=== PATIENT | female | born 1940 | race Caucasian/White ===

== ENCOUNTER 2023-05-11 18:55 | Inpatient (IN) | payer BC, SELFPAY ==
[2023-05-11] VITALS (22 sets, daily range): BP systolic 91–121; BP diastolic 60–77; PULSE 56–73; RESP 13–23; TEMP 36.4; O2SAT 97–100
--- NOTE | ~2023-05-11 | US_ITS ---
EXAMINATION: US venous doppler UE RT DATE: 05/12/2023 19:21 INDICATION: Increased swelling at the right upper limb. Elevated d-dimer. TECHNIQUE: Grayscale images without and with compression and Doppler images of the right upper extrem ity veins were obtained. COMPARISON: None. FINDINGS: The right internal jugular vein, subclavian vein, axillary vein, brachial vein, basilic vein are bonilla nt. The right cephalic vein was unable to be visualized. IMPRESSION: 1. Patent right upper extremity veins. No evidence of venous thrombosis. Reviewed, dictated and finalized at location A. DEVELOPMENT DIRECTOR
--- NOTE | ~2023-05-11 | US_ITS ---
EXAMINATION: US venous doppler LE DATE: 05/12/2023 19:22 INDICATION: Right lower limb swelling TECHNIQUE: Grayscale ultrasound images without and with compression and Doppler ultrasound images of the right lower extremity veins were obtained. COMPARISON: None. FINDINGS: The visualized portions of right common femoral vein, profunda (deep) femoral vein, femoral vein, pop liteal vein, peroneal trunk, posterior tibial veins, peroneal veins and greater saphenous vein outflo w are patent. IMPRESSION: 1. No deep venous thrombosis in the right lower limb. Reviewed, dictated and finalized at location A. 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
--- NOTE | ~2023-05-11 | CT_ITS ---
EXAMINATION: CT abdomen pelvis w con DATE: 05/11/2023 20:48 INDICATION: Right groin swelling TECHNIQUE: Computed tomography (CT) of the abdomen and pelvis was performed with 100 mL Omnipaque-350 intravenous contrast. Automated exposure control and iterative reconstruction technique were employe d. The dose-length product was 581.94 mGy-cm. COMPARISON: None FINDINGS: Small bilateral posterior layering pleural effusions with dependent compressive atelectasis in bilate ral lower lobes. Calcified nodule in the atelectatic right lower lobe and calcified paraesophageal ly mph nodes consistent with old granulomatous disease. Borderline heart size with biatrial enlargement. No pericardial effusion. Small sliding-type hiatal hernia with postoperative changes of likely prior Teresita fundoplication. Cholecystectomy clips the gallbladder fossa. Liver, spleen, pancreas, bilater al adrenal glands and left kidney are normal. 13 x 8 mm stone at the right renal pelvis. Subtle hazin ess to the fat abutting the renal pelvis but no hydronephrosis. There are few phleboliths along the r ight gonadal vein and in the pelvis. No evident ureteral stones. There are-4 mm stone in the right tr igonal region of the bladder. The uterus is not identified and has likely been surgically resected. B owels including the appendix are normal. Small bilateral fat-containing inguinal hernias. Extensive b calin wall edema extending from the lower chest into the bilateral thighs. No free intraperitoneal gas or fluid. No pathologically enlarged abdominal or pelvic lymphadenopathy. There is calcified atherosc lerosis of the aorta and many of the other arteries. Moderate lumbar and lower thoracic spondylosis. Subarticular sclerosis at the posterior medial right femoral head consistent with osteonecrosis. IMPRESSION: 1. Subtle haziness to the fat about the right renal pelvis likely related to inflammation secondary t o a 13 x 8 mm stone at the right renal pelvis but which is without hydronephrosis. Correlate with uri nalysis to exclude associated ascending urinary tract infection. 2. Small to moderate-sized bilateral pleural effusions. 3. Borderline heart size with biatrial enlargement. 4. Small sliding-type hiatal hernia with change of prior Teresita fundoplication. 5. Small bilateral fat-containing inguinal hernias. Reviewed, dictated and finalized at location A. IMPRESSION: 1. Subtle haziness to the fat about the right renal pelvis likely related to in flammation secondary to a 13 x 8 mm stone at the right renal pelvis but which i s without hydronephrosis. Correlate with urinalysis to exclude associated ascen ding urinary tract infection. 2. Small to moderate-sized bilateral pleural effusions. 3. Borderline heart size with biatrial enlargement. 4. Small sliding-type hiatal hernia with change of prior Teresita fundoplication. 5. Small bilateral fat-containing inguinal hernias.
--- NOTE | ~2023-05-11 | XR_ITS ---
EXAMINATION: XR abdomen/kub 1V INDICATION: Right kidney stone TECHNIQUE: Supine view of the abdomen is obtained. COMPARISON: CT from yesterday FINDINGS: There is a 1.5 cm stone in the right renal pelvis. No additional urolithiasis is identified . Contrast from yesterday's CT examination is seen in the urinary bladder. A calcification of the rig ht midabdomen is demonstrated to be in the right gonadal vein on the comparison CT. The bowel gas pat tern is normal. Cholecystectomy clips are noted. There is a partially imaged endovascular stent in th e proximal left lower extremity. IMPRESSION: 1. 1.5 cm stone in the right renal pelvis. Reviewed, dictated and finalized at location F. ND OPERATIONS SUPERINTENDENT
--- NOTE | ~2023-05-11 | XR_ITS ---
EXAMINATION: XR pelvis 1-2V DATE: 05/11/2023 20:32 INDICATION: Pelvic pain TECHNIQUE: An anteroposterior view of the pelvis was obtained. COMPARISON: None. FINDINGS: Bone alignment is normal. No fracture or suspected avascular necrosis. Mild bilateral hip and sacroil iac osteoarthritis. At least mild lumbar spondylosis. Assess for stent at the left groin. IMPRESSION: 1. Mild degenerative skeletal changes in the pelvis and lower lumbar spine. No acute osseous abnormal ity. Reviewed, dictated and finalized at location A. IMPRESSION: 1. Mild degenerative skeletal changes in the pelvis and lower lumbar spine. No acute osseous abnormality.
--- NOTE | ~2023-05-11 | XR_ITS ---
EXAMINATION: XR femur RT min 2V, XR tibia fibula RT 2V DATE: 05/11/2023 20:31 INDICATION: Right lower limb pain TECHNIQUE: 1. Overlapping proximal and distal, AP and lateral views of the right femur were obtained. 2. AP and lateral views of the right tibia and fibula were obtained. COMPARISON: None FINDINGS: Diffuse osteopenia. Alignment is normal. No fracture. Mild osteoarthritis at the right hip and right ankle. Additional moderate tricompartmental osteoarthritis at the right knee, severity of which coul d be underestimated on nonweightbearing imaging. No definitive right knee or ankle joint joint effusi ons. Vascular stenting in the distal thigh right and proximal left thigh. Soft tissue swelling throug hout the right lower limb most prominent about the ankle. Several dystrophic calcific lesions at the site of a region of focal atrophy of the subcutaneous fat at the medial aspect of the distal right ca lf which suggests sequela of chronic insult which could be due to prior trauma, surgery or infection. IMPRESSION 1. Diffuse osteopenia and polyarticular osteoarthritis mild at the right hip and ankle and of at leas t moderate severity at the right knee. No evident acute osseous abnormality. Reviewed, dictated and finalized at location A. IMPRESSION 1. Diffuse osteopenia and polyarticular osteoarthritis mild at the right hip an d ankle and of at least moderate severity at the right knee. No evident acute o sseous abnormality. IMPRESSION 1. Diffuse osteopenia and polyarticular osteoarthritis mild at the right hip an d ankle and of at least moderate severity at the right knee. No evident acute o sseous abnormality.
--- NOTE | ~2023-05-11 | XR_ITS ---
EXAMINATION: XR elbow RT min 3V DATE: 05/11/2023 19:47 INDICATION: Right elbow pain and swelling TECHNIQUE: Anteroposterior, oblique and lateral views of the right elbow were obtained. COMPARISON: None. FINDINGS: Diffuse osteopenia. Alignment is normal. No fracture or joint effusion. Mild osteoarthritis at the ri ght elbow. Small enthesophyte at the lateral epicondyle. No cortical erosions or periosteal reaction. Prominent soft tissue swelling posterior to the elbow and proximal forearm. IMPRESSION: 1. No right elbow joint effusion or acute osseous abnormality. Reviewed, dictated and finalized at location A.
--- NOTE | 2023-05-11 19:17 | ED.GENADULT ---
HPI - General Adult General Chief complaint: Unspecified Stated complaint: swelling to arm, leg, and groin Time Seen by Provider: 05/11/23 19:17 History of Present Illness HPI narrative: Patient is an 82 year old female with history of afib, prior stroke with right sided deficits, here with multiple joint pains. Patient states that she began having pain in her right elbow, right groin, right leg which she believes all began yesterday. She denies fall. She believes she is on a blood thinner but all of her medications are provided by her facility so she is unsure. She thinks that she has been at her facility for the last 6 months. She denies fever or chills. She denies chest pain or shortness of breath. Facility paperwork notes a history of TIA, CVA, hyperlipidemia, seizures, GERD, depression. Medication list includes Eliquis 2.5 mg b.i.d. She is DNR per their paperwork. Related Data Allergies Allergy/AdvReac Type Severity Reaction Status Date / Time No Known Allergies Allergy Verified 05/11/23 19:04 Review of Systems Review of Systems: ROS unobtainable: Yes unobtainable due to mental status Exam Narrative: GENERAL: Well-appearing, well-nourished, and in no acute distress. HEAD: Normocephalic, atraumatic. EYES: PERRLA and EOMI. ENT: Nares clear. Mucous membranes moist. NECK: Supple. CHEST: Clear to auscultation. No respiratory distress. HEART: Regular rate and rhythm. Normal peripheral pulses. ABDOMEN: Soft, nontender, nondistended. EXTREMITIES: Tenderness to the right elbow, normal ROM, mild edema, no erythema. Strong radial pulse with normal sensation distal to injury. Diffuse right leg swelling and tenderness extending from the groin to the ankle. No erythema or warmth. SKIN: Warm, dry, no rash. NEURO: No focal deficits. Alert and oriented x2. PSYCH: Normal mood and affect. Course Course Emergency Course: Chart review performed. Patient here with swelling in multiple joints. Triage vitals normal. No prior visits in our system. Lab work and imaging reviewed, CBC grossly within normal limits, her chart does note history of chronic anemia. Hemoglobin today is 9.8, suspect this is likely at her baseline. ESR is 34, D-dimer elevated at 1.24. She is already on Eliquis, will continue this and plan for ultrasound when available. BNP elevated at 1460. Xrays negative aside from osteoarthritis noted in right hip and ankle. CT shows subtle haziness at right renal pelvis, 13x8 mm stone at right renal pelvis without hydronephrosis. UA pending. Spoke with Dr. Moura regarding stone and UTI. Advises NPO for now, will see her in the morning. Expectant management for now and okay to anticoagulate at this point. Treat UTI for now. Spoke with Dr. Perdomo, accepts for admission. No additional anticoagulation needed at this time. Routine ultrasound ordered for RLE to look for DVT. NPO order placed. Facility paperwork states patient is DNR. Vital Signs Vital signs: Vital Signs Temperature 97.6 F 05/11/23 18:56 Pulse Rate 67 05/11/23 18:56 Respiratory Rate 17 05/11/23 18:56 Blood Pressure 121/73 05/11/23 18:56 Pulse Oximetry 100 05/11/23 18:56 Oxygen Delivery Room Air 05/11/23 18:56 Temperature 97.6 F 05/11/23 19:08 Pulse Rate 56 L 05/11/23 22:31 Respiratory Rate 16 05/11/23 22:31 Blood Pressure 99/65 L 05/11/23 22:31 Pulse Oximetry 99 05/11/23 22:31 Oxygen Delivery Room Air 05/11/23 18:56 Medical Decision Making Vital Signs Vital Signs: Vital Signs Temperature 97.6 F 05/11/23 18:56 Pulse Rate 67 05/11/23 18:56 Respiratory Rate 17 05/11/23 18:56 Blood Pressure 121/73 05/11/23 18:56 Pulse Oximetry 100 05/11/23 18:56 Oxygen Delivery Room Air 05/11/23 18:56 Temperature 97.6 F 05/11/23 19:08 Pulse Rate 56 L 05/11/23 22:31 Respiratory Rate 16 05/11/23 22:31 Blood Pressure 99/65 L 05/11/23 22:31 Pulse Oximetry 99 05/11/23 22:31 Ox
[2023-05-11 19:59] LABS: Basophils Percent Auto 0.2 % (0.2-1.2); Eosinophils Absolute Auto 0.2 K/mm3 (0-0.3); Eosinophils Percent Auto 3.7 % (0-4.4); Hematocrit 31.4 % (37.0-47.0); Hemoglobin 9.8 g/dL (12.0-15.0); Immature Granulocyte Absolute 0.01 K/mm3 (0.00-0.031); Immature Granulocyte Percent A 0.2 % (0-0.5); Lymphocytes Absolute Auto 1.53 K/mm3 (0.9-3.2); Lymphocytes Percent Auto 35.4 % (18.3-44.2); Mean Corpuscular HGB Conc 31.2 g/dl (32-36); Mean Corpuscular Hemoglobin 27.1 pg (26-34); Mean Platelet Volume 10.4 fl (7.4-10.4); Monocytes Absolute Auto 0.3 K/mm3 (0.1-0.6); Monocytes Percent Auto 7.2 % (2.6-8.5); Neutrophils Absolute Auto 2.3 K/mm3 (1.3-6.7); Neutrophils Percent Auto 53.3 % (45.5-73.1); Platelet Count Result 185 k/mm3 (150-375); Red Blood Count 3.61 M/mm3 (4.2-5.4); Red Cell Distribution Width 20.5 % (11.5-14.5); White Blood Count 4.3 K/mm3 (4.5-10.0)
[2023-05-11 20:14] LABS: Alanine Aminotransferase 21 U/L (6-35); Albumin Level 2.4 g/dL (3.5-5.1); Alkaline Phosphatase 79 U/L (38-126); Anion Gap -1 mmol/L (8-16); Aspartate Amino Transferase 31 U/L (14-36); Bilirubin,Total 0.4 mg/dL (0.2-1.3); Blood Urea Nitrogen 17 mg/dL (7-17); Calcium 7.9 mg/dL (8.4-10.2); Carbon Dioxide 33 mmol/L (22-30); Chloride 106 mmol/L (98-107); Creatine Kinase 33 U/L (30-135); Estimated CRCL calculation 39 ml/min; Estimated Glomerular Filt Rate 60; Glucose 114 mg/dL (65-110); Potassium 3.4 mmol/L (3.4-5.0); Sodium 138 mmol/L (137-145)
[2023-05-11 20:19] LABS: D Dimer 1.24 ug/mL (<0.48)
[2023-05-11 20:21] LABS: CRP 0.5 mg/dL (<1.0)
[2023-05-11 20:23] LABS: NT Pro B Type Natriuretic Pept 1460 pg/mL (19.9-100)
[2023-05-11 20:35] LABS: Erythrocyte Sedimentation Rate 34 mm/hr (0-20)
[2023-05-11 23:48] LABS: Bacteria Urine 4+ /hpf; Need Manual Microscopic Reviewed; RBC Urine >100 /hpf (0-2); Squamous Epithelial Cell Urine Occasional /hpf (Few); WBC Urine >100 /hpf
[2023-05-11 23:49] LABS: Appearance Urine Cloudy (Clear); Bilirubin Urine Negative (Negative); Blood Urine 3+ (Negative); Color Urine Brown (Yellow); Glucose Urine UA Negative (Negative); Ketones Urine Negative (Negative); Leukocyte Esterase Ur 2+ LEU/UL (Negative); Nitrate Urine Negative (Negative); Protein Urine 3+ mg/dL (Negative); Specific Grav Ur 1.031 (1.001-1.035); Urobilinogen Urine 0.2 mg/dL (<2.0); pH Urine 5.5 (5.0-9.0)
[2023-05-11 23:50] LABS: Add Urine Microscopic? YES
[2023-05-12] VITALS (12 sets, daily range): BP systolic 102–136; BP diastolic 54–75; PULSE 60–81; RESP 12–20; TEMP 36.3–37; O2SAT 97–100; BMI 22.6
--- NOTE | 2023-05-12 00:35 | PM.IMHP ---
H&P: HPI History of Present Illness Date/Time: 05/12/23 00:35 Chief Complaint: body pain Narrative: This is an 82 yo female with past medical history significant for seizure disorder, stroke, atrial fibrillation, rate controlled and anticoagulated, patient resides at [facility]. Patient brought for evaluation to the emergency room after complaining of very use pains however upon interviewing with the patient she was not able to give me really much history or meaningful. A states that has belly pain has had diarrhea and poor appetite. Preliminary workup was significant for urinalysis with numerous WBCs present. CT of abdomen and pelvis was reported as: EXAMINATION: CT abdomen pelvis w con DATE: 05/11/2023 20:48 INDICATION: Right groin swelling TECHNIQUE: Computed tomography (CT) of the abdomen and pelvis was performed with 100 mL Omnipaque-350 intravenous contrast. Automated exposure control and iterative reconstruction technique were employed. The dose-length product was 581.94 mGy-cm. COMPARISON: None FINDINGS: Small bilateral posterior layering pleural effusions with dependent compressive atelectasis in bilateral lower lobes. Calcified nodule in the atelectatic right lower lobe and calcified paraesophageal lymph nodes consistent with old granulomatous disease. Borderline heart size with biatrial enlargement. No pericardial effusion. Small sliding-type hiatal hernia with postoperative changes of likely prior Teresita fundoplication. Cholecystectomy clips the gallbladder fossa. Liver, spleen, pancreas, bilateral adrenal glands and left kidney are normal. 13 x 8 mm stone at the right renal pelvis. Subtle haziness to the fat abutting the renal pelvis but no hydronephrosis. There are few phleboliths along the right gonadal vein and in the pelvis. No evident ureteral stones. There are-4 mm stone in the right trigonal region of the bladder. The uterus is not identified and has likely been surgically resected. Bowels including the appendix are normal. Small bilateral fat-containing inguinal hernias. Extensive body wall edema extending from the lower chest into the bilateral thighs. No free intraperitoneal gas or fluid. No pathologically enlarged abdominal or pelvic lymphadenopathy. There is calcified atherosclerosis of the aorta and many of the other arteries. Moderate lumbar and lower thoracic spondylosis. Subarticular sclerosis at the posterior medial right femoral head consistent with osteonecrosis. IMPRESSION: 1. Subtle haziness to the fat about the right renal pelvis likely related to inflammation secondary to a 13 x 8 mm stone at the right renal pelvis but which is without hydronephrosis. Correlate with urinalysis to exclude associated ascending urinary tract infection. 2. Small to moderate-sized bilateral pleural effusions. 3. Borderline heart size with biatrial enlargement. 4. Small sliding-type hiatal hernia with change of prior Teresita fundoplication. 5. Small bilateral fat-containing inguinal hernias. Review of Systems Review of Systems: vague complains, although initially said various pains and poor appetite. Constitutional: Constitutional: Denies chills, Denies fever(s) and Reports poor appetite Eyes: Eyes: Denies change in vision ENT: Denies dysphagia and Denies odynophagia Cardiovascular: Cardiovascular: Denies chest pain Respiratory: Respiratory: Denies cough and Denies dyspnea Gastrointestinal: Gastrointestinal: Reports abdominal pain, Denies dyspepsia, Denies heartburn, Reports diarrhea, Denies nausea and Denies vomiting Genitourinary: Genitourinary: Denies dysuria and Denies flank pain Musculoskeletal: Musculoskeletal: Reports myalgias and Denies limited range of motion Integumentary/Breasts: Skin/Breast: Denies rash Neurologic: Denies focal weakness and Denies Sensory deficit (Neuro) Psychiatric: Psychiatric: Reports no additional psychiatric complaints and Reports as per HPI Endocrine: Endocrine: Yasir
[2023-05-12 00:51] LABS: Lactic Acid Reflex 0.9 mmol/L (0.7-2.0)
--- NOTE | 2023-05-12 01:19 | ADMGEN ---
This patient, Lisa Francis, was admitted to Medical Room 348-01. Patient/family oriented to hospital policies and general routines including ID bracelet, bed and alarms, visiting hours, pain management, procedures, bathroom and other care routines, personal items, smoking policy, room service/diet, and visiting hours. Information on how to activate the Rapid Response Team has been discussed. Patient/Family are encouraged to report perceived risks to care and to ask questions if they do not understand what they are told or what they should do.
--- NOTE | 2023-05-12 01:19 | PC.NURSE ---
Daylight Savings Time For Daylight Savings Time Ending in the Fall - Clocks are moved back. For Daylight Savings Time Beginning in the Spring - Clocks are moved ahead. For [facility], the time of change occurs at 0200 hrs. Time is taken from the sql server dba. This entry on the patient's chart recognizes the change in time reflected during documentation. Example: 2 entries for vital signs may be charted for 0200 hrs.
--- NOTE | 2023-05-12 10:49 | PM.IMPN ---
Progress Note: A&P Assessment and Plan (1) Acute urinary tract infection: Code(s): N39.0 - Urinary tract infection, site not specified Status: Acute Assessment and Plan: 05/11/23:(copied from chart) Admit to regular medical floor Started on Rocephin Await cultures Supportive care 05/12/23: UA showing 3+ protein, 3+ blood, 2+ leukocytes, 4+ bacteria, many urine white blood cells/red blood cells. Blood in urine cultures pending Patient was started on Rocephin and we will continue with Rocephin pending culture results. Urology following patient, no intervention needed at this time as the CT scan does not show any hydronephrosis (2) Calculus of right kidney: Code(s): N20.0 - Calculus of kidney Status: Acute Assessment and Plan: 05/11/23:(copied from chart) NPO past midnight Urology consult 05/12/23: Urology consulted and following, CT scan showing no hydronephrosis, no interventions needed at this time. Patient will need to follow up with Urology on an outpatient basis. Can resume diet (3) Right leg swelling: Code(s): M79.89 - Other specified soft tissue disorders Status: Acute Assessment and Plan: 05/11/23:(copied from chart) Ultrasound in a.m. Patient is on Eliquis 05/12/23: Bilateral venous lower extremity Doppler ultrasound ordered, will get right upper extremity venous Doppler as well Patient currently on Eliquis (4) D-dimer, elevated: Code(s): R79.89 - Other specified abnormal findings of blood chemistry Status: Acute Assessment and Plan: 05/11/23:(copied from chart) Patient on Eliquis 05/12/23: D-dimer 1.24 Patient currently on Eliquis Awaiting bilateral lower extremity venous Doppler ultrasound and will get a right upper extremity Doppler as well Time Spent With Patient Time with patient: Greater than 35 minutes Subjective Date/time seen: 05/12/23 10:49 Interval history: Interval history 05/12/23: This is an 82 year old female with a significant past medical history of TIA, CVA, hyperlipidemia, seizures, GERD, and depression who presented to the hospital on 05/11/23 with swelling to her right arm, right groin, and right leg that she noticed in last 24 hours. Work up in the hospital includes a right elbow x-ray which did not show any effusion or abnormality, femur and tib/fib x-ray which shown diffuse oseopenia and polyarticular osteoarthritis mild at the right hip and ankle and moderate severity at the right knee, no evidence of acute osseous abnormality,X-ray of the pelvis revealed mild degenerative skeletal changes in the pelvis and lower lumbar, no acute osseous abnormality. She also had a CT scan of her abdomen and pelvis which shown subtle haziness to the fat about the right renal pelvis likely related to inflammation secondary to a 13x 8mm stone at the right renal pelvis without hydronephrosis, small to moderate bilateral pleural effusions, small sliding type hiatal hernia with change of prior schuyler fundoplication, and small bilateral fat- containing inguinal hernias. UA was perfomed whic shown 3+ blood, 2+ leukocytes, 4+ bacteria, and many urine RBC's and WBC's. Urine and blood cultures were sent. Patient was given a dose of Rocephin in the ER and Urology was consulted about the stone. On examination today patient is alert oriented x4, lying in the bed. She has had noticeable swelling to the right elbow. Patient denies any falls. She does report that she has had a CVA in the past with right-sided weakness. She is on Eliquis. She reports her pain is well controlled with morphine 2 mg every 4 hours. VSS, she is afebrile, and currently on room air. Labs shown WBC 3.9, RBC 3.86, Hgb 10.4, Hct 34.0, Na+ 139, K+ 3.5, BUN 16, creatinine 0.80, blood glucose 82-114, liver enzymes normal, Ca+ 7.9, albumin 2.6. Urology seen patient today and reports that the patient is asymptomatic from the stone and there is no hydronephrosis on CT scan,
--- NOTE | 2023-05-12 10:54 | WPDURCON ---
Assessment and Plan Assessment and plan (1) Acute urinary tract infection: Code(s): N39.0 - Urinary tract infection, site not specified Status: Acute (2) Calculus of right kidney: Code(s): N20.0 - Calculus of kidney Status: Acute Assessment and Plan: She is asymptomatic from the stone, no hydro. Will obtain KUB. -likely will need outpt ESWL when acute issues resolve and UTI treated -await cultures -tailor abx accordingly Urology Consult Note HPI Date Seen: 05/12/23 Requesting Physician: Ekta Perdomo MD Primary Care Provider: [employer] MAKER PHYSICIAN Consult Narrative Narrative: Lisa Francis is a 82 year old female who presented to ED with c/o right sided swelling. She has hx of stroke, she is on eliquis. urology consulted for CT scan finding of renal pelvis stone without hydro. She denies fevers/chills. Denies flank pain. She endorses dysuria. No N/V. Denies prior hx of stone disease. UA was consistent with UTI, Cr normal, WBC 13. Today she denies any urologic symptoms. Review of Systems Constitutional: Constitutional: Denies body ache(s) and Denies chills Eyes: Eyes: Reports no additional eye complaints ENT: Reports system reviewed and no additional complaints, except as documented Cardiovascular: Cardiovascular: Denies chest pain Respiratory: Respiratory: Denies dyspnea Gastrointestinal: Gastrointestinal: Reports as per HPI and Reports no additional gastrointestinal complaints Genitourinary: Genitourinary: Reports no additional female genitourinary complaints Musculoskeletal: Musculoskeletal: Reports no additional musculoskeletal complaints Integumentary/Breasts: Skin/Breast: Reports system reviewed and no additional complaints, except as docu Neurologic: Reports system reviewed and no additional complaints, except as documented Psychiatric: Psychiatric: Reports no additional psychiatric complaints PMFSH Social History Social History Smoking status: Never smoker Alcohol intake: former Substance use: never Substance use type: does not use Lack of Transportation: No Lack of Food: Never True Current Housing: I Have Housing Concerned About Future Housing: No Difficulty Paying Gas/Electric Bills: No Difficulty Paying for Meds: No Currently Unemployed: No Education: Decline to Answer Difficulty w/ Childcare or Family Care: No Spiritual care concerns: No Meds Home Medications and Allergies Home Medications Medication Instructions Recorded Confirmed Type apixaban 2.5 mg tablet (Eliquis) 2.5 mg PO BID 05/12/23 05/12/23 History atorvastatin 80 mg tablet 80 mg PO DAILY 05/12/23 05/12/23 History ergocalciferol (vitamin D2) 1,250 1,250 mcg PO WEEKLY 05/12/23 05/12/23 History mcg (50,000 unit) capsule (Vitamin D2) escitalopram oxalate 20 mg tablet 20 mg PO DAILY 05/12/23 05/12/23 History famotidine 10 mg tablet 10 mg PO DAILY 05/12/23 05/12/23 History furosemide 40 mg tablet 40 mg PO DAILY 05/12/23 05/12/23 History levetiracetam 750 mg tablet 750 mg PO BID 05/12/23 05/12/23 History mirtazapine 15 mg tablet 15 mg PO DAILY 05/12/23 05/12/23 History ondansetron 4 mg disintegrating 4 mg PO Q8H PRN Nausea 05/12/23 05/12/23 History tablet polyethylene glycol 3350 17 17 g PO BID PRN Constipation 05/12/23 05/12/23 History gram/dose oral powder (Miralax) potassium chloride 20 mEq 20 meq PO DAILY 05/12/23 05/12/23 History tablet,extended release(part/cryst) (Klor-Con M) Allergies Allergy/AdvReac Type Severity Reaction Status Date / Time No Known Allergies Allergy Verified 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
[2023-05-12 11:05] LABS: Basophils Percent Auto 0.5 % (0.2-1.2); Eosinophils Absolute Auto 0.1 K/mm3 (0-0.3); Eosinophils Percent Auto 3.6 % (0-4.4); Hemoglobin 10.4 g/dL (12.0-15.0); Immature Granulocyte Absolute 0.01 K/mm3 (0.00-0.031); Immature Granulocyte Percent A 0.3 % (0-0.5); Lymphocytes Absolute Auto 1.34 K/mm3 (0.9-3.2); Lymphocytes Percent Auto 34.4 % (18.3-44.2); Mean Corpuscular HGB Conc 30.6 g/dl (32-36); Mean Corpuscular Hemoglobin 26.9 pg (26-34); Mean Corpuscular Volume 88.1 fl (80-100); Mean Platelet Volume 10.5 fl (7.4-10.4); Monocytes Absolute Auto 0.3 K/mm3 (0.1-0.6); Monocytes Percent Auto 7.2 % (2.6-8.5); Neutrophils Absolute Auto 2.1 K/mm3 (1.3-6.7); Platelet Count Result 176 k/mm3 (150-375); Red Blood Count 3.86 M/mm3 (4.2-5.4); Red Cell Distribution Width 20.6 % (11.5-14.5); White Blood Count 3.9 K/mm3 (4.5-10.0)
[2023-05-12 11:15] LABS: Alanine Aminotransferase 20 U/L (6-35); Albumin Level 2.6 g/dL (3.5-5.1); Alkaline Phosphatase 83 U/L (38-126); Anion Gap 2 mmol/L (8-16); Aspartate Amino Transferase 32 U/L (14-36); Bilirubin,Total 0.5 mg/dL (0.2-1.3); Blood Urea Nitrogen 16 mg/dL (7-17); Calcium 7.9 mg/dL (8.4-10.2); Carbon Dioxide 30 mmol/L (22-30); Chloride 107 mmol/L (98-107); Estimated CRCL calculation 46 ml/min; Estimated Glomerular Filt Rate > 60; Glucose 82 mg/dL (65-110); Potassium 3.5 mmol/L (3.4-5.0); Sodium 139 mmol/L (137-145)
[2023-05-12] MEDS: SODIUM CHLORIDE 0.9% IV 1,000 ML 100 ML IV CONT (11:47)
[2023-05-12] MEDS: levETIRAcetam 250 MG TABLET 750 MG PO (16:27)
[2023-05-12] MEDS: MIRTAZAPINE 15 MG TABLET PO (20:00)
[2023-05-13] VITALS (9 sets, daily range): BP systolic 94–114; BP diastolic 46–65; PULSE 54–82; RESP 14–18; TEMP 36.4–36.8; O2SAT 96–100
[2023-05-13 06:07] LABS: Basophils Percent Auto 0.4 % (0.2-1.2); Eosinophils Absolute Auto 0.1 K/mm3 (0-0.3); Eosinophils Percent Auto 2.6 % (0-4.4); Hematocrit 28.1 % (37.0-47.0); Hemoglobin 8.6 g/dL (12.0-15.0); Immature Granulocyte Absolute 0.02 K/mm3 (0.00-0.031); Immature Granulocyte Percent A 0.4 % (0-0.5); Lymphocytes Absolute Auto 1.37 K/mm3 (0.9-3.2); Lymphocytes Percent Auto 27.6 % (18.3-44.2); Mean Corpuscular HGB Conc 30.6 g/dl (32-36); Mean Corpuscular Hemoglobin 26.9 pg (26-34); Mean Corpuscular Volume 87.8 fl (80-100); Mean Platelet Volume 10.9 fl (7.4-10.4); Monocytes Absolute Auto 0.4 K/mm3 (0.1-0.6); Monocytes Percent Auto 8.1 % (2.6-8.5); Neutrophils Percent Auto 60.9 % (45.5-73.1); Platelet Count Result 156 k/mm3 (150-375); Red Cell Distribution Width 20.8 % (11.5-14.5)
[2023-05-13 06:17] LABS: Alanine Aminotransferase 19 U/L (6-35); Albumin Level 2.2 g/dL (3.5-5.1); Alkaline Phosphatase 75 U/L (38-126); Anion Gap 3 mmol/L (8-16); Aspartate Amino Transferase 30 U/L (14-36); Bilirubin,Total 0.4 mg/dL (0.2-1.3); Blood Urea Nitrogen 16 mg/dL (7-17); Calcium 7.4 mg/dL (8.4-10.2); Carbon Dioxide 28 mmol/L (22-30); Chloride 108 mmol/L (98-107); Estimated CRCL calculation 46 ml/min; Estimated Glomerular Filt Rate > 60; Glucose 81 mg/dL (65-110); Sodium 139 mmol/L (137-145)
[2023-05-13] MEDS: levETIRAcetam 250 MG TABLET 750 MG PO ×2 (08:35→16:53)
[2023-05-13] MEDS: FUROSEMIDE 40 MG TABLET PO (08:35)
[2023-05-13] MEDS: ESCITALOPRAM OXALATE 10 MG TABLET 20 MG PO (08:35)
[2023-05-13] MEDS: ATORVASTATIN 40 MG TABLET 80 MG PO (08:35)
[2023-05-13] MEDS: FAMOTIDINE 10 MG TABLET PO (08:36)
[2023-05-13] MEDS: SODIUM CHLORIDE 0.9% IV 1,000 ML 100 ML IV CONT ×3 (08:36→22:43)
--- NOTE | 2023-05-13 10:17 | P.PNIM_ITS ---
Progress Note: A&P Assessment and Plan (1) Acute urinary tract infection: Code(s): N39.0 - Urinary tract infection, site not specified Status: Acute Assessment and Plan: 05/11/23:(copied from chart) * Admit to regular medical floor * Started on Rocephin * Await cultures * Supportive care 05/12/23: * UA showing 3+ protein, 3+ blood, 2+ leukocytes, 4+ bacteria, many urine white blood cells/red blood cells. * Blood in urine cultures pending * Patient was started on Rocephin and we will continue with Rocephin pending culture results. * Urology following patient, no intervention needed at this time as the CT scan does not show any hydronephrosis 05/13/23: * Urine culture showing Enterococcus species * Changed antibiotic to amoxicillin oral * Blood cultures showing Gram-positive cocci in clusters in 1/2 vials, likely contamination. * Urology following patient however no intervention is needed and patient will follow-up with provider on an outpatient basis. * Will touch base with case coordination tomorrow for transition back to her inpatient facility (2) Calculus of right kidney: Code(s): N20.0 - Calculus of kidney Status: Acute Assessment and Plan: 05/11/23:(copied from chart) * NPO past midnight * Urology consult 05/12/23: * Urology consulted and following, CT scan showing no hydronephrosis, no interventions needed at this time. Patient will need to follow up with Urology on an outpatient basis. * Can resume diet 05/13/23: * Tolerating diet * See above (3) Right leg swelling: Code(s): M79.89 - Other specified soft tissue disorders Status: Acute Assessment and Plan: 05/11/23:(copied from chart) * Ultrasound in a.m. * Patient is on Eliquis 05/12/23: * Bilateral venous lower extremity Doppler ultrasound ordered, will get right upper extremity venous Doppler as well * Patient currently on Eliquis 05/13/23: * Bilateral lower extremity Dopplers and right upper extremity Doppler for deep * Continue Eliquis (4) D-dimer, elevated: Code(s): R79.89 - Other specified abnormal findings of blood chemistry Status: Acute Assessment and Plan: 05/11/23:(copied from chart) * Patient on Eliquis 05/12/23: * D-dimer 1.24 * Patient currently on Eliquis * Awaiting bilateral lower extremity venous Doppler ultrasound and will get a right upper extremity Doppler as well 05/13/23: * Bilateral lower extremity was negative for DVT, right upper extremity Doppler negative for DVT * Continue Eliquis Time Spent With Patient Time with patient: 25 - 35 minutes Subjective Date/time seen: 05/13/23 10:17 Interval history: Interval history 05/12/23: This is an 82 year old female with a significant past medical history of TIA, CVA, hyperlipidemia, seizures, GERD, and depression who presented to the hospital on 05/11/23 with swelling to her right arm, right groin, and right leg that she noticed in last 24 hours. 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 She also had a CT scan of her abdomen and pelvis which shown subtle haziness to the fat about the right renal pelvis likely related to inflammatio
--- NOTE | 2023-05-13 10:17 | PM.IMPN ---
Progress Note: A&P Assessment and Plan (1) Acute urinary tract infection: Code(s): N39.0 - Urinary tract infection, site not specified Status: Acute Assessment and Plan: 05/11/23:(copied from chart) Admit to regular medical floor Started on Rocephin Await cultures Supportive care 05/12/23: UA showing 3+ protein, 3+ blood, 2+ leukocytes, 4+ bacteria, many urine white blood cells/red blood cells. Blood in urine cultures pending Patient was started on Rocephin and we will continue with Rocephin pending culture results. Urology following patient, no intervention needed at this time as the CT scan does not show any hydronephrosis 05/13/23: Urine culture showing Enterococcus species Changed antibiotic to amoxicillin oral Blood cultures showing Gram-positive cocci in clusters in 1/2 vials, likely contamination. Urology following patient however no intervention is needed and patient will follow-up with provider on an outpatient basis. Will touch base with case coordination tomorrow for transition back to her inpatient facility (2) Calculus of right kidney: Code(s): N20.0 - Calculus of kidney Status: Acute Assessment and Plan: 05/11/23:(copied from chart) NPO past midnight Urology consult 05/12/23: Urology consulted and following, CT scan showing no hydronephrosis, no interventions needed at this time. Patient will need to follow up with Urology on an outpatient basis. Can resume diet 05/13/23: Tolerating diet See above (3) Right leg swelling: Code(s): M79.89 - Other specified soft tissue disorders Status: Acute Assessment and Plan: 05/11/23:(copied from chart) Ultrasound in a.m. Patient is on Eliquis 05/12/23: Bilateral venous lower extremity Doppler ultrasound ordered, will get right upper extremity venous Doppler as well Patient currently on Eliquis 05/13/23: Bilateral lower extremity Dopplers and right upper extremity Doppler for deep Continue Eliquis (4) D-dimer, elevated: Code(s): R79.89 - Other specified abnormal findings of blood chemistry Status: Acute Assessment and Plan: 05/11/23:(copied from chart) Patient on Eliquis 05/12/23: D-dimer 1.24 Patient currently on Eliquis Awaiting bilateral lower extremity venous Doppler ultrasound and will get a right upper extremity Doppler as well 05/13/23: Bilateral lower extremity was negative for DVT, right upper extremity Doppler negative for DVT Continue Eliquis Time Spent With Patient Time with patient: 25 - 35 minutes Subjective Date/time seen: 05/13/23 10:17 Interval history: Interval history 05/12/23: This is an 82 year old female with a significant past medical history of TIA, CVA, hyperlipidemia, seizures, GERD, and depression who presented to the hospital on 05/11/23 with swelling to her right arm, right groin, and right leg that she noticed in last 24 hours. Work up in the hospital includes a right elbow x-ray which did not show any effusion or abnormality, femur and tib/fib x-ray which shown diffuse oseopenia and polyarticular osteoarthritis mild at the right hip and ankle and moderate severity at the right knee, no evidence of acute osseous abnormality,X-ray of the pelvis revealed mild degenerative skeletal changes in the pelvis and lower lumbar, no acute osseous abnormality. She also had a CT scan of her abdomen and pelvis which shown subtle haziness to the fat about the right renal pelvis likely related to inflammation secondary to a 13x 8mm stone at the right renal pelvis without hydronephrosis, small to moderate bilateral pleural effusions, small sliding type hiatal hernia with change of prior schuyler fundoplication, and small bilateral fat- containing inguinal hernias. UA was perfomed whic shown 3+ blood, 2+ leukocytes, 4+ bacteria, and many urine RBC's and WBC's. Urine and blood cultures were sent. Patient was given a dose of Rocephin in the ER and Urology was consulte
[2023-05-13] MEDS: ENOXAPARIN 40 MG/0.4 ML SYRINGE SUB-Q (11:09)
[2023-05-13] MEDS: LINEZOLID 600 MG TABLET PO (11:09)
[2023-05-13] MEDS: AMOXICILLIN 500 MG CAPSULE PO ×2 (14:45→19:36)
[2023-05-13] MEDS: MIRTAZAPINE 15 MG TABLET PO (19:36)
[2023-05-13] MEDS: VANCOMYCIN 1,000 MG/NS 250 ML 1,000 MG/250 ML BAG 250 MG IVPB (22:44)
[2023-05-14] VITALS: PULSE 66
[2023-05-14 00:45] VITALS: BP 101/53; PULSE 64; RESP 20; TEMP 36.5; O2SAT 98
[2023-05-14 04:00] VITALS: PULSE 64
[2023-05-14 05:00] VITALS: BP 126/61; PULSE 62; RESP 20; TEMP 36.4; O2SAT 99
[2023-05-14] MEDS: AMOXICILLIN 500 MG CAPSULE PO ×2 (05:22→14:13)
[2023-05-14] MEDS: SODIUM CHLORIDE 0.9% IV 1,000 ML 100 ML IV CONT ×2 (05:22→12:22)
[2023-05-14 05:37] LABS: Basophils Percent Auto 0.6 % (0.2-1.2); Eosinophils Absolute Auto 0.1 K/mm3 (0-0.3); Eosinophils Percent Auto 3.9 % (0-4.4); Hematocrit 30.1 % (37.0-47.0); Immature Granulocyte Absolute 0.01 K/mm3 (0.00-0.031); Immature Granulocyte Percent A 0.3 % (0-0.5); Lymphocytes Absolute Auto 1.35 K/mm3 (0.9-3.2); Mean Corpuscular HGB Conc 29.9 g/dl (32-36); Mean Corpuscular Volume 90.4 fl (80-100); Mean Platelet Volume 11.3 fl (7.4-10.4); Monocytes Absolute Auto 0.4 K/mm3 (0.1-0.6); Monocytes Percent Auto 9.9 % (2.6-8.5); Neutrophils Absolute Auto 1.7 K/mm3 (1.3-6.7); Neutrophils Percent Auto 47.3 % (45.5-73.1); Platelet Count Result 139 k/mm3 (150-375); Red Blood Count 3.33 M/mm3 (4.2-5.4); Red Cell Distribution Width 20.6 % (11.5-14.5); White Blood Count 3.6 K/mm3 (4.5-10.0)
[2023-05-14 05:52] LABS: Alanine Aminotransferase 18 U/L (6-35); Albumin Level 2.2 g/dL (3.5-5.1); Alkaline Phosphatase 75 U/L (38-126); Anion Gap 3 mmol/L (8-16); Aspartate Amino Transferase 29 U/L (14-36); Bilirubin,Total 0.4 mg/dL (0.2-1.3); Blood Urea Nitrogen 14 mg/dL (7-17); Calcium 7.4 mg/dL (8.4-10.2); Carbon Dioxide 25 mmol/L (22-30); Chloride 109 mmol/L (98-107); Estimated CRCL calculation 46 ml/min; Estimated Glomerular Filt Rate > 60; Glucose 87 mg/dL (65-110); Sodium 137 mmol/L (137-145)
[2023-05-14 06:05] LABS: Anisocytosis 2+ (NORMAL); Burr Cells 1+ (NORMAL); Ovalocytes 1+ (NORMAL); Schistocytes None Seen (NORMAL)
[2023-05-14 08:00] VITALS: BP 137/69; PULSE 60; PULSE 66; RESP 14; TEMP 36.3; O2SAT 100
[2023-05-14] MEDS: ENOXAPARIN 40 MG/0.4 ML SYRINGE SUB-Q (09:04)
[2023-05-14] MEDS: ATORVASTATIN 40 MG TABLET 80 MG PO (09:04)
[2023-05-14] MEDS: FUROSEMIDE 40 MG TABLET PO (09:04)
[2023-05-14] MEDS: levETIRAcetam 250 MG TABLET 750 MG PO ×2 (09:04→17:27)
[2023-05-14] MEDS: FAMOTIDINE 10 MG TABLET PO (09:04)
[2023-05-14] MEDS: ESCITALOPRAM OXALATE 10 MG TABLET 20 MG PO (09:04)
--- NOTE | 2023-05-14 10:00 | PM.DS ---
DS: Admitting Diagnosis Discharge Date 05/14/23 Admitting Diagnosis Acute urinary tract infection calculus of the right kidney right leg swelling D-dimer elevated DS: Discharge Diagnosis Discharge Diagnosis (1) Acute urinary tract infection: Code(s): N39.0 - Urinary tract infection, site not specified Status: Acute (2) Calculus of right kidney: Code(s): N20.0 - Calculus of kidney Status: Acute (3) Right leg swelling: Code(s): M79.89 - Other specified soft tissue disorders Status: Acute (4) D-dimer, elevated: Code(s): R79.89 - Other specified abnormal findings of blood chemistry Status: Acute DS: Summary Hospital Course Reason for hospitalization: UTI Hospital Course: This is an 82 year old female who presented to the ER on 05/11/23 with complaints of swelling to her right arm right and right leg that she notices last 20 workup in the hospital included a right elbow x-ray which did not show any effusion or abnormality femur and tib-fib x-rays shown diffuse osteopenia polyarticular osteoarthritis mild at the right hip and ankle and moderate changes in the right knee. X-ray of the pelvis revealed mild degenerative skeletal changes in the pelvis and lower lumbar. She also had a CT scan of her abdomen and pelvis which shown subtle haziness to the fat about the right renal pelvis likely related to inflammation secondary to a 13 x 8mm stone at the right renal pelvis without hydronephrosis, small to moderate bilateral pleural effusions, small sliding type hiatal hernia with change of prior schuyler fundoplication, and small bilateral fat containing inguinal hernias. UA was performed which showing 3+ blood, 2+ leukocytes, 4+ bacteria. Urine and blood cultures were sent and patient was started on Rocephin. Urine cultures showing enterococcus species and blood culture shown gram positive in one out of 2 vials, most likely contamination. Patient was transitioned to oral Amoxicillin to cover for UTI. We also got venous dopplers of her right upper arm and BLE which did not show any evidence of DVT. Patient denies any pain in arm or legs. I did not see any erythema or signs of infection. Looks more like dependent edema. On examination today, patient is alert and oriented x4, she is afebrile, VSS, she is on room air. Patient denies any nausea, vomiting, diarrhea, abdominal pain, shortness of breath, or chest pain. Labs today revealed white blood cell count 3.6, hemoglobin 9.0, hematocrit 30.1, sodium 137, potassium 3.0, chloride 9, BUN 14, creatinine 0.8. Patient was given 80 mEq of potassium for today. she is stable for discharge and will be discharged on oral amoxicillin the next 7 days. She will need follow up with primary care within 1 week. Status at Discharge Cognitive/behavioral status at discharge: Alert and oriented x3 Functional status at discharge: independent ambulation Overall status at discharge: patient is progressing back to baseline Time Spent with Patient Time attestation: Total time spent providing and/or coordinating discharge services: Time spent: Greater than 30 minutes Exam Narrative: General: In no acute distress, well nourished, pleasant Head: atraumatic, no encephalopathy Eyes: EOMI, PERRLA, sclera clear ENT: moist mucous membranes, nasal passages clear Neck: supple, no JVD, no adenopathy, trachea midline Cardiac: Normal S1 and S2. Irregular rhythm. Patient has chronic AFib. No murmur, gallops or friction rubs, peripheral pulses intact. Respiratory: Lungs clear to auscultation, no adventitious lung sounds. No acute respiratory distress Gastrointestinal: soft, non-distended, reports abdominal tenderness over the bladder, normoactive bowel sounds. Denies nausea, vomiting, and diarrhea. : voiding without difficulty. Extremities: Notable weakness on the right upper extremity and right lower extremity post CVA, there is swelling to her right elbow and her right leg with d
[2023-05-14] MEDS: POTASSIUM CHLORIDE 20 MEQ ER TABLET 40 MEQ PO ×2 (12:32→14:13)
[2023-05-14 14:00] VITALS: BP 108/54; PULSE 61; RESP 12; TEMP 36.7; O2SAT 100
[2023-05-14 15:25] LABS: Influenza A QL RT-PCR Negative (Negative); Influenza B QL RT-PCR Negative (Negative); RSV RNA, RT-PCR Negative (Negative); SARS-CoV-2 RNA PCR Negative (Negative)
== END 2023-05-14 19:30 | DRG 690 ==
LOC: ANHED 05-12 00:39 → ANH3MED 05-12 00:52
PROVIDERS: Admitting Provider Internal Medicine; Emergency Provider Student in an Organized Health Care Education/Training Program; PCP Hospitalist; Visit Provider Nurse Practitioner Acute Care
DX: N39.0 Urinary tract infection, site not specified (principal); I69.351 Hemiplegia and hemiparesis following cerebral infarction affecting right dominant side; B95.2 Enterococcus as the cause of diseases classified elsewhere; N20.0 Calculus of kidney; E78.5 Hyperlipidemia, unspecified; K21.9 Gastro-esophageal reflux disease without esophagitis; G40.909 Epilepsy, unspecified, not intractable, without status epilepticus; I48.91 Unspecified atrial fibrillation; M79.89 Other specified soft tissue disorders; Z66 Do not resuscitate; Z79.01 Long term (current) use of anticoagulants; Z11.52 Encounter for screening for COVID-19
CPT/HCPCS: 36415; 72170; 73080; 73552; 73590; 74018; 74177; 80053; 81001; 82550; 83605; 83735; 83880; 85025; 85380; 85652; 86140; 87040; 87086; 87147; 87181; 87186; 87637; 93971; 99285; A9270; J0696; J1650; J3370; J7030; Q9967

== ENCOUNTER 2023-07-12 10:38 | Inpatient (IN) | payer BC, SELFPAY ==
[2023-07-12] VITALS (43 sets, daily range): BP systolic 105–127; BP diastolic 58–89; PULSE 61–78; RESP 12–20; TEMP 36.3–36.4; O2SAT 99–100
--- NOTE | ~2023-07-12 | CT_ITS ---
CT of the Abdomen and Pelvis: Indication: Abdominal pain Technique: 2.5 mm axial scans were obtained through the abdomen and pelvis following intravenous adm inistration of 100 cc of Omnipaque 350. Dose reduction technique was used on this scan by utilizing a utomated exposure control and iterative reconstruction technique. The dose-length product (DLP) was 6 68.39 mGy-cm. COMPARISON: 05/11/2023 Findings: Scans through the lung bases demonstrate moderate to large partially imaged bilateral pleu ral effusions with partial bilateral lower lobe atelectasis. The liver, spleen, pancreas, adrenals and left kidney are within normal limits. There is a 1.3 x 0.9 cm ovoid stone in the right renal pelvis/right proximal right ureter. No hydronephrosis. Possible wal l thickening and inflammatory change of the adjacent very proximal right ureter. Cholecystectomy clip s are present. There are atherosclerotic calcifications of the aorta. No retroperitoneal lymphadenop athy. No bowel obstruction or bowel wall thickening. There is no evidence to suggest acute appendicitis. Th ere is mild haziness in the central mesentery with minimal prominent central mesenteric lymph nodes. Images through the pelvis were performed. Urinary bladder unremarkable. Patient post hysterectomy. No pelvic mass seen. No ascites. Impression: 1.3 x 0.9 cm stone at the right renal pelvis/right proximal right ureter is unchanged, as is mild wal l thickening of the adjacent proximal right ureter. Correlate clinically and with urinalysis, as xu cated. Moderate to large partially and bilateral pleural effusions with partial bilateral lower lobe atelect asis. Findings consistent with mesenteric panniculitis. Reviewed, dictated and finalized at [facility]. 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 Corre late clinically and with urinalysis, as indicated. Moderate to large partially and bilateral pleural effusions with partial bilate ral lower lobe atelectasis. Findings consistent with mesenteric panniculitis.
--- NOTE | ~2023-07-12 | XR_ITS ---
EXAMINATION: XR barium swallow modified DATE: 07/15/2023 10:27 INDICATION: Dysphagia. TECHNIQUE: The patient was given barium-containing material of multiple consistencies to swallow by t elia speech pathologist while I performed fluoroscopy. Fluoroscopy exposure time was 1.4 minutes. The n umber of fluoroscopy images saved to the PACS was 1. Dose-area product was 0.8 Gy-cm^2. FINDINGS: There is a reduced laryngeal elevation, reduced tongue base retraction, mild to moderate vallecular r esidue, and trace to mild piriform sinus residue. IMPRESSION: 1. No laryngeal penetration or aspiration. 2. Please refer to the speech therapy report for recommendations. Reviewed, dictated and finalized at location A. 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
--- NOTE | ~2023-07-12 | XR_ITS ---
Portable chest x-ray Comparison: None Clinical History: Weakness Findings: Minimal bilateral pleural effusions are probably present. Cardiomediastinal silhouette is unremarkable. Bones and soft tissues are unremarkable. Impression: Minimal bilateral pleural effusions. Reviewed, dictated and finalized at location M. EKEEPING STAFF Impression: Minimal bilateral pleural effusions.
--- NOTE | ~2023-07-12 | CT_ITS ---
EXAMINATION: CTA BRAIN/CAROTID DATE: 07/12/2023 10:56 INDICATION: Stroke with right facial droop TECHNIQUE: Computed tomographic angiography (CTA) of the head and neck was performed with 100 mL Omni paque-350 intravenous contrast. Multiplanar reconstructions and maximum intensity projection 3D-recon structions of the carotid arteries and of the intracranial arteries were created by the technologist on a separate workstation. Precontrast CT of the head was also obtained. Automated exposure control and iterative reconstruction technique were employed.The dose-length product was 1639.26 mGy-cm. COMPARISON: None. FINDINGS: Carotid arteries: Normal caliber where visualized aortic arch and great vessels arising from the arch with no dissectio n or hemodynamically significant stenosis. There are 2 vertebral arteries arising from the right subc lavian artery which fuses is a anterior the vertebral foramen of the mid cervical spine. There is sma ll amount of atherosclerotic plaque with 0% stenosis of both the right and left carotid bulbs relativ e to normal distal artery lumen diameter (NASCET criteria). There are small posterior layering bilate ral pleural effusions. Small calcified right upper lobe nodule consistent with old granulomatous dise ase. A few additional noncalcified nodular opacities in the dependent right upper lobe, the largest m easuring 7 mm. Multinodular goiter with multiple subcentimeter bilateral thyroid nodules. Moderate to severe lower cervical spondylosis. Head: Moderate-sized region of encephalomalacia in the posterior left parietal, left occipital and posterio r medial left temporal lobes consistent with chronic infarct in the vascular distribution of the left posterior cerebral artery. There are couple additional small old lacunar infarcts in the left thalam us and left caudate nucleus. No acute intracranial hemorrhage, acute infarction or abnormal extra axi al fluid collection. There is mild scattered white matter hypoattenuation consistent with chronic sma ll vessel ischemic disease. Ventricles are normal and symmetric. No mass/mass effect. No abnormally e nhancing brain lesions on postcontrast imaging. Changes of bilateral intraocular lens replacement. T he orbits and mastoid air cells are normal. Mild mucosal thickening in the left maxillary sinus. Intracranial arteries There is small amount of atherosclerotic plaque without hemodynamic significant stenosis at the bilat eral carotid siphons. There is no hemodynamically significant stenosis in the vertebral, basilar and internal carotid arteries. Vertebral arteries are codominant. There are no aneurysms identified. Bot h A1 and P1 segments are patent. The left A1 segment is significantly larger than the right with both segments fusing to form a common pericallosal artery which subsequently divides to supply the more p eripheral subsegmental arteries on both the left and right. Cerebral arterial arborization appears sy mmetric. IMPRESSION: 1. Minimal atherosclerotic plaque with 0% stenosis of the both the right and left carotid bulbs relat leticia to normal distal artery lumen diameter (NASCET criteria). 2. Old infarct involving the left posterior cerebral artery vascular distribution as well as a couple small lacunar infarcts at the left thalamus and left caudate nucleus. No acute intracranial process. 3. Age-related changes with new mild diffuse volume loss and mild scattered white matter hypoattenuat ion consistent with chronic small vessel ischemic disease. 4. Unremarkable cerebral CT angiogram with no aneurysm or hemodynamically significant stenosis. 5. Small bilateral pleural effusions. 6. A few right upper lobe pulmonary nodules measuring up to 7 mm. Recommend 6-12 month follow-up low- dose noncontrast chest CT . 7. Multinodular goiter. Reviewed, dictated and finalized at location [facility]
--- NOTE | 2023-07-12 11:03 | ECG_ITS ---
Measurements Intervals [place] Rate: 73 P: [place]: 0 QRS: 13 QRSD: 86 T: 16 QT: 391 QTc: 431 Interpretive Statements ATRIAL FIBRILLATION LOW QRS VOLTAGE- DIFFUSE LEADS ANTEROSEPTAL INFARCT, AGE INDETERMINATE BORDERLINE ST-T WAVE ABNORMALITY- ANTEROLAT/INF LEADS BASELINE WANDER- V3-V4 ABNORMAL ECG NO PREVIOUS ECG AVAILABLE FOR COMPARISON Electronically Signed On 07-12-2023 11:08:28 BAGMAN/WOMAN by Ritchie Moreno D.O.
[2023-07-12 11:04] LABS: Glucose Point of Care 117 mg/dl (65-105)
--- NOTE | 2023-07-12 11:10 | ED.NEUROSD ---
HPI - Neuro Symptoms/Deficit General Chief Complaint: Suspected CVA Stated Complaint: code cva Time Seen by Provider: 07/12/23 10:39 History of Present Illness HPI Narrative: Patient is an 83-year-old female with history of CVA who presents ER due to concerns for new onset stroke symptoms. Patient is on Eliquis received a dose this morning. At 9:30 a.m. they felt patient had right-sided facial weakness that was new. Last known well is likely yesterday but may have been more than a week ago. According to the facility patient has had increased weakness in her right arm over last week. Patient has chronic right-sided weakness at baseline due to her previous stroke. Patient had decreased response visit is for EMS they placed her on a non-rebreather. Here patient is awake alert orient x3. She reports chronic weakness in her right face as well as her right arm and bilateral lower extremities. She reports she cannot lift either extremity off the bed at baseline. She feels slightly weaker in her right arm however which she can lift up slightly on her own. She reports she has been having nausea and diarrhea for the last day and when she is ill her previous stroke symptoms tend to be worsened. She reports mild headache. No trauma. No additional concerns. patient did express that she is a DNR and would not want any aggressive life-saving measures. Related Data Home Medications Medication Instructions Recorded Confirmed apixaban 2.5 mg tablet (Eliquis) 2.5 mg PO BID 05/12/23 05/12/23 atorvastatin 80 mg tablet 80 mg PO DAILY 05/12/23 05/12/23 ergocalciferol (vitamin D2) 1,250 1,250 mcg PO WEEKLY 05/12/23 05/12/23 mcg (50,000 unit) capsule (Vitamin D2) escitalopram oxalate 20 mg tablet 20 mg PO DAILY 05/12/23 05/12/23 famotidine 10 mg tablet 10 mg PO DAILY 05/12/23 05/12/23 furosemide 40 mg tablet 40 mg PO DAILY 05/12/23 05/12/23 levetiracetam 750 mg tablet 750 mg PO BID 05/12/23 05/12/23 mirtazapine 15 mg tablet 15 mg PO DAILY 05/12/23 05/12/23 ondansetron 4 mg disintegrating 4 mg PO Q8H PRN Nausea 05/12/23 05/12/23 tablet polyethylene glycol 3350 17 17 g PO BID PRN Constipation 05/12/23 05/12/23 gram/dose oral powder (Miralax) potassium chloride 20 mEq 20 meq PO DAILY 05/12/23 05/12/23 tablet,extended release(part/cryst) (Klor-Con M) Allergies Allergy/AdvReac Type Severity Reaction Status Date / Time No Known Allergies Allergy Verified 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 of Systems Review of Systems: All systems reviewed & are unremarkable except as noted in HPI and below Constitutional: Constitutional: Reports fatigue, Denies fever(s) and Reports weakness ENT: Reports system reviewed and no additional complaints, except as documented Cardiovascular: Cardiovascular: Reports no additional cardiovascular complaints Respiratory: Respiratory: Reports no additional respiratory complaints Gastrointestinal: Gastrointestinal: Denies abdominal pain, Reports diarrhea, Reports nausea and Reports vomiting Neurologic: Denies syncope, Reports headache(s) and Reports focal weakness ( Chronic) PMFSH Past Medical History Medical History (Updated 07/12/23 @ 18:11 by Graham Gomez MD) CVA (cerebral vascular accident) Depression GERD (gastroesophageal reflux disease) Hyperlipidemia Seizures Social History Social History Smoking status: Never smoker Alcohol intake: former Substance use: never Substance use type: does not use Lack of Transportation: No Lack of Food: Never True Current Housing: I Have Housing Concerned About Future Housing: No Difficulty Paying Gas/Electric Bills: No Difficulty Paying for Meds: No Currently Unemployed: No Education: Decline to Answer Difficulty w/ Childcare or Family Care: No Spiritual care concerns: No Exam Narrative: GENERAL: Chronically ill-appearing, well-nourished, and in no acute distress. HEAD: Normocephalic, atraumatic. EYES: PERRL
[2023-07-12 12:28] LABS: Basophils Percent Auto 0.8 % (0.2-1.2); Eosinophils Absolute Auto 0.1 K/mm3 (0-0.3); Eosinophils Percent Auto 2.8 % (0-4.4); Hematocrit 34.2 % (37.0-47.0); Lymphocytes Absolute Auto 1.35 K/mm3 (0.9-3.2); Lymphocytes Percent Auto 34.4 % (18.3-44.2); Mean Corpuscular HGB Conc 29.2 g/dl (32-36); Mean Corpuscular Volume 92.4 fl (80-100); Mean Platelet Volume 11.6 fl (7.4-10.4); Monocytes Absolute Auto 0.4 K/mm3 (0.1-0.6); Monocytes Percent Auto 10.2 % (2.6-8.5); Neutrophils Percent Auto 51.8 % (45.5-73.1); Platelet Count Result 161 k/mm3 (150-375); White Blood Count 3.9 K/mm3 (4.5-10.0)
[2023-07-12 12:40] LABS: INR 1.4; Prothrombin Time 17.6 Seconds (11.1-14.7)
[2023-07-12 12:41] LABS: Alanine Aminotransferase 30 U/L (6-35); Albumin Level 2.4 g/dL (3.5-5.1); Alkaline Phosphatase 87 U/L (38-126); Anion Gap 4 mmol/L (8-16); Aspartate Amino Transferase 48 U/L (14-36); Bilirubin,Total 0.3 mg/dL (0.2-1.3); Blood Urea Nitrogen 17 mg/dL (7-17); Calcium 7.7 mg/dL (8.4-10.2); Carbon Dioxide 27 mmol/L (22-30); Chloride 108 mmol/L (98-107); Estimated CRCL calculation 45 ml/min; Estimated Glomerular Filt Rate > 60; Glucose 108 mg/dL (65-110); Partial Thromboplastin Time 25.7 SECONDS (22.3-36.8); Potassium 3.9 mmol/L (3.4-5.0); Sodium 139 mmol/L (137-145)
[2023-07-12 12:53] LABS: Troponin I < 0.012 ng/mL (0.000-0.034)
[2023-07-12 15:00] LABS: Influenza A QL RT-PCR Negative (Negative); Influenza B QL RT-PCR Negative (Negative); RSV RNA, RT-PCR Negative (Negative); SARS-CoV-2 RNA PCR Negative (Negative)
[2023-07-12 15:47] LABS: Appearance Urine Turbid (Clear); Bacteria Urine None Seen /hpf; Bilirubin Urine Negative (Negative); Blood Urine 3+ (Negative); Color Urine Red (Yellow); Glucose Urine UA Negative (Negative); Ketones Urine Negative (Negative); Leukocyte Esterase Ur 2+ LEU/UL (Negative); Need Manual Microscopic Reviewed; Nitrate Urine Negative (Negative); Protein Urine 2+ mg/dL (Negative); RBC Urine >100 /hpf (0-2); Specific Grav Ur 1.025 (1.001-1.035); Squamous Epithelial Cell Urine None seen /hpf (Few); Urobilinogen Urine 0.2 mg/dL (<2.0); WBC Urine 21-50 /hpf; pH Urine 5.5 (5.0-9.0)
[2023-07-12 15:53] LABS: Add Urine Microscopic? YES
--- NOTE | 2023-07-12 17:59 | PC.NURSE ---
Patient much more alert at this time. Patient sitting in the bed eating. Patient is A&Ox3-4.
--- NOTE | 2023-07-12 19:20 | PC.NURSE ---
THIS RN ASSUMED CARE OF PATIENT. THIS RN TOOK PATIENT REPORT FROM CHRISTY ROONEY.
--- NOTE | 2023-07-12 20:36 | ADMGEN ---
This patient, Lisa Francis, was admitted to Medical Room 255-. Patient/family oriented to hospital policies and general routines including ID bracelet, bed and alarms, visiting hours, pain management, procedures, bathroom and other care routines, personal items, smoking policy, room service/diet, and visiting hours. Information on how to activate the Rapid Response Team has been discussed. Patient/Family are encouraged to report perceived risks to care and to ask questions if they do not understand what they are told or what they should do.
[2023-07-13] VITALS (9 sets, daily range): BP systolic 107–136; BP diastolic 53–58; PULSE 62–80; RESP 12–15; TEMP 36.5–37; O2SAT 97–99
[2023-07-13 08:39] LABS: Anion Gap 5 mmol/L (8-16); Blood Urea Nitrogen 15 mg/dL (7-17); Calcium 7.9 mg/dL (8.4-10.2); Carbon Dioxide 24 mmol/L (22-30); Chloride 109 mmol/L (98-107); Estimated CRCL calculation 45 ml/min; Estimated Glomerular Filt Rate > 60; Glucose 83 mg/dL (65-110); Potassium 3.9 mmol/L (3.4-5.0); Sodium 138 mmol/L (137-145)
[2023-07-13 09:10] LABS: Basophils Percent Auto 0.5 % (0.2-1.2); Eosinophils Absolute Auto 0.2 K/mm3 (0-0.3); Eosinophils Percent Auto 3.8 % (0-4.4); Hemoglobin 10.1 g/dL (12.0-15.0); Immature Granulocyte Absolute 0.01 K/mm3 (0.00-0.031); Immature Granulocyte Percent A 0.2 % (0-0.5); Lymphocytes Absolute Auto 1.27 K/mm3 (0.9-3.2); Lymphocytes Percent Auto 28.7 % (18.3-44.2); Mean Corpuscular HGB Conc 29.7 g/dl (32-36); Mean Corpuscular Hemoglobin 26.9 pg (26-34); Mean Corpuscular Volume 90.4 fl (80-100); Mean Platelet Volume 11.3 fl (7.4-10.4); Monocytes Absolute Auto 0.3 K/mm3 (0.1-0.6); Monocytes Percent Auto 7.7 % (2.6-8.5); Neutrophils Absolute Auto 2.6 K/mm3 (1.3-6.7); Neutrophils Percent Auto 59.1 % (45.5-73.1); Platelet Count Result 168 k/mm3 (150-375); Red Blood Count 3.76 M/mm3 (4.2-5.4); Red Cell Distribution Width 17.7 % (11.5-14.5); White Blood Count 4.4 K/mm3 (4.5-10.0)
[2023-07-13] MEDS: ESCITALOPRAM OXALATE 10 MG TABLET 20 MG PO (09:25)
[2023-07-13] MEDS: FUROSEMIDE 40 MG TABLET PO (09:25)
[2023-07-13] MEDS: POTASSIUM CHLORIDE 20 MEQ ER TABLET PO (09:26)
[2023-07-13] MEDS: ATORVASTATIN 40 MG TABLET 80 MG PO (09:26)
[2023-07-13] MEDS: levETIRAcetam 250 MG TABLET 750 MG PO ×2 (09:26→21:18)
[2023-07-13] MEDS: FAMOTIDINE 10 MG TABLET PO (09:26)
[2023-07-13] MEDS: APIXABAN 2.5 MG TABLET PO ×2 (09:26→17:19)
[2023-07-13] MEDS: ONDANSETRON HCL ODT 4 MG TABLET PO (09:35)
[2023-07-13 10:08] LABS: Lipase 83 U/L (23-300)
[2023-07-13 10:44] LABS: Acanthocytes 1+ (NORMAL); Burr Cells 1+ (NORMAL); Ovalocytes 1+ (NORMAL); Platelet Estimate Adequate (Adequate)
[2023-07-13 10:45] LABS: Schistocytes None Seen (NORMAL)
--- NOTE | 2023-07-13 11:03 | WPDNEURCNPN ---
Assessment and Plan Assessment and plan (1) Right arm weakness: Code(s): R29.898 - Other symptoms and signs involving the musculoskeletal system Status: Chronic (2) CVA (cerebral vascular accident): Code(s): I63.9 - Cerebral infarction, unspecified Status: Chronic (3) Acute UTI: Code(s): N39.0 - Urinary tract infection, site not specified Status: Acute Plan Lisa Francis is a 83 year old female with a history of prior stroke, HLD presenting for evaluation of worsening deficits. Patient has chronic R sided weakness at baseline due to a prior stroke. She was found to have a UTI on admission. Most likely stroke recrudescence due to concurrent infection. MRI brain will still be obtained to make sure there is no new stroke. Consult date: 07/13/23 Reason for consult: R sided weakness HPI: Lisa Francis is a 83 year old female with a history of prior stroke, HLD presenting for evaluation of worsening deficits. Patient has chronic R sided weakness at baseline due to a prior stroke. According to the facility that patient resides in, she has had increased weakness in the RUE over the past week. She also was noted to have R facial weakness on 07/12 around 0930 which initially was thought to be a new finding for her. EMS was called due to concerns for new stroke. Patient was taken to [facility] ED where she was AOx3, with baseline mentation. Patient reports that at baseline she has chronic R facial weakness, as well as RUE and bilateral lower extremity weakness. She does feel that she is slightly weaker in the RUE. She has been having nausea and diarrhea for the past few days, and she notes that when she is sick, her prior stroke symptoms tend to become more pronounced. In the ED CT head did not show any acute changes. CTA brain/carotid showed minimal atherosclerotic plaque with 0% stenosis of the both carotid bulbs, old infarct involving L STITCH SEPARATOR distribution as well as small lacunar infarcts in the L thalamus and L caudate nucleus, as well as diffuse volume loss. EKG showed atrial fibrillation. UA concerning for UTI. She was subsequently admitted for evaluation of worsening stroke symptoms and treatment for UTI. She takes Eliquis 2.5mg BID, Keppra 750mg BID, and Lipitor 80mg as well as other medications. Review of Systems Review of Systems: All systems reviewed & are unremarkable except as noted in HPI and below PMFSH Past Medical History Medical History CVA (cerebral vascular accident) Depression GERD (gastroesophageal reflux disease) Hyperlipidemia Seizures Family History Family History Father Cerebrovascular accident Hypertension Mother Diabetes mellitus Social History Social History Smoking status: Never smoker Alcohol intake: never Substance use: never Substance use type: does not use Do You Feel Safe in your Home?: No Lack of Transportation: No Lack of Food: Never True Current Housing: I Have Housing Concerned About Future Housing: No Difficulty Paying Gas/Electric Bills: No Difficulty Paying for Meds: No Currently Unemployed: No Education: Grade School Difficulty w/ Childcare or Family Care: No Spiritual care concerns: No Meds Home Medications and Allergies Home Medications Medication Instructions Recorded Confirmed Type apixaban 2.5 mg tablet (Eliquis) 2.5 mg PO BID 05/12/23 07/12/23 History atorvastatin 80 mg tablet 80 mg PO DAILY 05/12/23 07/12/23 History ergocalciferol (vitamin D2) 1,250 1,250 mcg PO WEEKLY 05/12/23 07/12/23 History mcg (50,000 unit) capsule (Vitamin D2) escitalopram oxalate 20 mg tablet 20 mg PO DAILY 05/12/23 07/12/23 History famotidine 10 mg tablet 10 mg PO DAILY 05/12/23 07/12/23 History furosemide 40 mg tablet 40 mg PO DAILY 05/12/23 07/12/23 History levetiracetam 7
--- NOTE | 2023-07-13 11:25 | PM.IMHP ---
H&P: HPI History of Present Illness Date/Time: 07/13/23 11:25 Chief Complaint: Suspected CVA Narrative: Patient is an 83 YO female with PMH of CVA 2 years ago admitted for new onset stroke symptoms. Patient is on Eliquis received a dose this morning. Patient herself never felt any new symptoms, but an employee where she lives walked past her and noted a right sided facial droop. Patient denies LOC, CUELLAR or vision changes. She has a slight droop to her right side at baseline. Her right side has never regained it's strength since her previous CVA and her vision is at it's baseline. She reports she has been having nausea and diarrhea for the last day and when she is ill her previous stroke symptoms tend to be worsened. She is not aware of any new or modifications to her medications. Her only symptom this morning to report is ringing in her ears. Neuro has been consulted for further evaluation, awaiting MRI. CT head showed no acute changes. CXR showed minimal pleural effusions. Will order PT/OT for eval. Speech evaluation as she reports having difficulty swallowing and requires a modified diet. She is reporting mid epigastric and RUQ abdominal pain. Will order CTA. UA indicative of UTI, continue Rocephin and culture pending. Review of Systems Review of Systems: All systems reviewed & are unremarkable except as noted in HPI and below PMFSH Past Medical History Medical History (Updated 07/13/23 @ 11:53 by Vero Galarza APRN) CVA (cerebral vascular accident) Depression GERD (gastroesophageal reflux disease) Hyperlipidemia Seizures Family History Family History Father Cerebrovascular accident Hypertension Mother Diabetes mellitus Social History Social History Smoking status: Never smoker Alcohol intake: never Substance use: never Substance use type: does not use Do You Feel Safe in your Home?: No Lack of Transportation: No Lack of Food: Never True Current Housing: I Have Housing Concerned About Future Housing: No Difficulty Paying Gas/Electric Bills: No Difficulty Paying for Meds: No Currently Unemployed: No Education: Grade School Difficulty w/ Childcare or Family Care: No Spiritual care concerns: No Meds Home Medications and Allergies Home Medications Medication Instructions Recorded Confirmed Type apixaban 2.5 mg tablet (Eliquis) 2.5 mg PO BID 05/12/23 07/12/23 History atorvastatin 80 mg tablet 80 mg PO DAILY 05/12/23 07/12/23 History ergocalciferol (vitamin D2) 1,250 1,250 mcg PO WEEKLY 05/12/23 07/12/23 History mcg (50,000 unit) capsule (Vitamin D2) escitalopram oxalate 20 mg tablet 20 mg PO DAILY 05/12/23 07/12/23 History famotidine 10 mg tablet 10 mg PO DAILY 05/12/23 07/12/23 History furosemide 40 mg tablet 40 mg PO DAILY 05/12/23 07/12/23 History levetiracetam 750 mg tablet 750 mg PO BID 05/12/23 07/12/23 History mirtazapine 15 mg tablet 15 mg PO HS 05/12/23 07/12/23 History ondansetron 4 mg disintegrating 4 mg PO Q8H PRN Nausea 05/12/23 07/12/23 History tablet polyethylene glycol 3350 17 17 g PO BID PRN Constipation 05/12/23 07/12/23 History gram/dose oral powder (Miralax) potassium chloride 20 mEq 20 meq PO DAILY 05/12/23 07/12/23 History tablet,extended release(part/cryst) (Klor-Con M) Allergies Allergy/AdvReac Type Severity Reaction Status Date / Time No Known Allergies Allergy Verified 05/12/23 01:36 DENTAL HYGIENIST Vital Signs Vital Signs - 24 hr 07/12/23 11:30 07/12/23 11:31 07/12/23 11:45 Temperature Pulse Rate 74 77 73 Respiratory Rate 12 15 13 Blood Pressure 118/66 Pulse Oximetry 99 Oxygen Delivery 07/12/23 11:46 07/12/23 12:00 07/12/23 12:01 Temperature Pulse Rate 72 71 75 Respiratory Rate 17 12 12 Blood Pressure 111/58 L 111/64 Pulse Oximetry 99 Oxygen Delivery 07/12/23 12:02 07/12/23
--- NOTE | 2023-07-13 14:19 | PCPTNOTE ---
Attempted to see for therapy evaluation, pt states her facility uses a mechanical lift or 2 people to lift her into a wheelchair. She confirms she is non-ambulatory. Will d/t orders at pt is dependent at baseline.
--- NOTE | 2023-07-13 14:31 | PCOTNOTE ---
Attempted to see for OT evaluation, pt states her facility uses a mechanical lift or 2 people to lift her into a wheelchair. She confirms she is non-ambulatory. Pt. is dependent for ADL's at baseline. Will d/t orders at pt is dependent at baseline.
[2023-07-13] MEDS: MIRTAZAPINE 15 MG TABLET PO (21:18)
[2023-07-14] VITALS (9 sets, daily range): BP systolic 117–143; BP diastolic 56–59; PULSE 64–74; RESP 16–18; TEMP 36.3–36.9; O2SAT 94–100
[2023-07-14 05:42] LABS: Basophils Percent Auto 0.5 % (0.2-1.2); Eosinophils Absolute Auto 0.1 K/mm3 (0-0.3); Eosinophils Percent Auto 2.9 % (0-4.4); Hematocrit 34.9 % (37.0-47.0); Hemoglobin 10.2 g/dL (12.0-15.0); Immature Granulocyte Absolute 0.01 K/mm3 (0.00-0.031); Immature Granulocyte Percent A 0.3 % (0-0.5); Lymphocytes Absolute Auto 1.45 K/mm3 (0.9-3.2); Lymphocytes Percent Auto 38.6 % (18.3-44.2); Mean Corpuscular HGB Conc 29.2 g/dl (32-36); Mean Corpuscular Hemoglobin 26.9 pg (26-34); Mean Corpuscular Volume 92.1 fl (80-100); Mean Platelet Volume 12.2 fl (7.4-10.4); Monocytes Absolute Auto 0.3 K/mm3 (0.1-0.6); Neutrophils Absolute Auto 1.8 K/mm3 (1.3-6.7); Neutrophils Percent Auto 48.7 % (45.5-73.1); Platelet Count Result 177 k/mm3 (150-375); Red Blood Count 3.79 M/mm3 (4.2-5.4); Red Cell Distribution Width 17.8 % (11.5-14.5); White Blood Count 3.8 K/mm3 (4.5-10.0)
[2023-07-14 05:54] LABS: Anion Gap 4 mmol/L (8-16); Blood Urea Nitrogen 13 mg/dL (7-17); Carbon Dioxide 31 mmol/L (22-30); Chloride 105 mmol/L (98-107); Estimated CRCL calculation 45 ml/min; Estimated Glomerular Filt Rate > 60; Glucose 85 mg/dL (65-110); Potassium 3.6 mmol/L (3.4-5.0); Sodium 140 mmol/L (137-145)
[2023-07-14 06:36] LABS: Acanthocytes 1+ (NORMAL); Burr Cells 1+ (NORMAL); Ovalocytes 1+ (NORMAL); Platelet Estimate Adequate (Adequate); Schistocytes None Seen (NORMAL)
[2023-07-14] MEDS: levETIRAcetam 250 MG TABLET 750 MG PO ×2 (08:08→20:57)
[2023-07-14] MEDS: POTASSIUM CHLORIDE 20 MEQ ER TABLET PO (08:08)
[2023-07-14] MEDS: ATORVASTATIN 40 MG TABLET 80 MG PO (08:08)
[2023-07-14] MEDS: FUROSEMIDE 40 MG TABLET PO (08:08)
[2023-07-14] MEDS: ESCITALOPRAM OXALATE 10 MG TABLET 20 MG PO (08:08)
[2023-07-14] MEDS: FAMOTIDINE 10 MG TABLET PO (08:09)
[2023-07-14] MEDS: APIXABAN 2.5 MG TABLET PO ×2 (08:09→16:56)
--- NOTE | 2023-07-14 09:42 | PC.NURSE ---
patient scheduled for MRI however unable to obtain information required per hospital protocol. Patient has stints in her legs. unknown to patient and family of kind, location and/or where they were placed. Family stated it was >10years ago and that she has had several MRI's since at other hospitals two of which were [facility] and [facility]. Daughter stated she would attempt to get information. Physician updated on this status. Patient is currently stable, VSS, no s/s of distress. Will continue to monitor
--- NOTE | 2023-07-14 10:11 | WPDNEUROPN ---
Progress Note: A&P Assessment and Plan (1) CVA (cerebral vascular accident): Code(s): I63.9 - Cerebral infarction, unspecified Status: Chronic (2) Right arm weakness: Code(s): R29.898 - Other symptoms and signs involving the musculoskeletal system Status: Chronic (3) Acute UTI: Code(s): N39.0 - Urinary tract infection, site not specified Status: Acute Plan fyn Francis is a 83 year old female with a history of prior stroke, HLD presenting for evaluation of worsening deficits. Patient has chronic R sided weakness at baseline due to a prior stroke. She was found to have a UTI on admission. Most likely stroke recrudescence due to concurrent infection. MRI brain will still be obtained to make sure there is no new stroke, which is currently pending due to patient having stents. While the concern for new acute stroke is lower, MRI brain would be the only way to rule out the possibility of acute stroke as the cause of her worsening symptoms. Nursing staff to try to gather more information about stents, so that we can hopefully get the imaging done while she is admitted. Subjective Date/time seen: 07/14/23 10:11 Interval history: Lisa Francis is a 83 year old female with a history of prior stroke, HLD presenting for evaluation of worsening deficits. Patient has chronic R sided weakness at baseline due to a prior stroke. According to the facility that patient resides in, she has had increased weakness in the RUE over the past week. She also was noted to have R facial weakness on 07/12 around 0930 which initially was thought to be a new finding for her. EMS was called due to concerns for new stroke. Patient was taken to [facility] ED where she was AOx3, with baseline mentation. Patient reports that at baseline she has chronic R facial weakness, as well as RUE and bilateral lower extremity weakness. She does feel that she is slightly weaker in the RUE. She has been having nausea and diarrhea for the past few days, and she notes that when she is sick, her prior stroke symptoms tend to become more pronounced. In the ED CT head did not show any acute changes. CTA brain/carotid showed minimal atherosclerotic plaque with 0% stenosis of the both carotid bulbs, old infarct involving L FRONT DESK AGENT distribution as well as small lacunar infarcts in the L thalamus and L caudate nucleus, as well as diffuse volume loss. EKG showed atrial fibrillation. UA concerning for UTI. She was subsequently admitted for evaluation of worsening stroke symptoms and treatment for UTI. She takes Eliquis 2.5mg BID, Keppra 750mg BID, and Lipitor 80mg as well as other medications. Unfortunately, MRI brain has not been done yet due to patient having stents. Patient feels that her weakness and sensory loss on the right is worse today. Review of Systems Review of Systems: All systems reviewed & are unremarkable except as noted in HPI and below Exam Const: General: comfortable HENMT: Mouth: Yes moist mucous membranes Eyes: Pupils: Equal, round and reactive pupils present EOM: EOMs intact bilaterally Resp: Effort & Inspection: normal respiratory effort Skin: General skin exam: normal color Neuro: Other: Alert, awake, Pupils equal and reactive bilaterally, EOMI, R facial droop, strength RUE 3/5, LUE strength is age appropriate, LLE 2/5 and RLE 1/5. R hemisensory loss. FNF is normal on the left, ERWIN on right due to weakness. Language comprehension and fluency intact. Gait deferred. Extrem: General: normal to inspection Psych: Mental Status: mental status grossly normal Affect: normal affect Objective Data Vital Signs Vital Signs: Vital Signs - 24 hr 07/13/23 11:51 07/13/23 14:54 07/13/23 16:00 Temperature 36.9 C Pulse Rate 73 63 63 Respiratory Rate 12 Blood Pressure 111/58 L Pulse Oximetry 99 Oxygen Delivery 07/13/23 20:16 07/13/23 20:00 07/13/23 20:00 Temperature 37.0 C Pulse Rate 80 62 80 Respiratory Rate
--- NOTE | 2023-07-14 11:06 | PCSTNOTE ---
Bedside swallowing evaluation and communication evaluation completed. Patient seen bedside with head of bed elevated to achieve upright positioning. Cursory oral peripheral examination reveals mild right sided facial weakness at rest, but labial range of motion is symmetrical. Ligual strength is within normal limits bilaterally. Speech production is intelligible and voice is clear and audible. Comprehension of conversational speech is within functional limits. Per nursing, patient ate breakfast with no difficulty while nurse was present. She fed herself sausage links and eggs which she cut up herself. No coughing or other signs of aspiration noted by nursing during breakfast or by this EXPANDER MACHINE OPERATOR during evaluation. Patient states that she feels that food doesn't always (go down) and she compensates by using multiple swallows and head movements. Current diet textures is regular and liquids are thin (regular). Recommendations: modified barium swallow study to evaluate for possible silent aspiration. No other speech therapy for swallowing or communication is recommended. Swallowing precaution recommendations placed in chart. Thank you for the referral of this patient.
--- NOTE | 2023-07-14 16:07 | PM.IMPN ---
Progress Note: A&P Assessment and Plan (1) CVA (cerebral vascular accident): Code(s): I63.9 - Cerebral infarction, unspecified Status: Chronic Assessment and Plan: history of CVA [address] Head/neck showed Minimal atherosclerotic plaque with 0% stenosis of the both the right and left carotid bulbs relative to normal distal artery lumen diameter (NASCET criteria). Old infarct involving the left posterior cerebral artery vascular distribution as well as a couple small lacunar infarcts at the left thalamus and left caudate nucleus. No acute intracranial process. Age-related changes with new mild diffuse volume loss and mild scattered white matter hypoattenuation consistent with chronic small vessel ischemic disease. Unremarkable cerebral CT angiogram with no aneurysm or hemodynamically significant stenosis. Small bilateral pleural effusions. A few right upper lobe pulmonary nodules measuring up to 7 mm. Recommend 6-12 month follow-up low-dose noncontrast chest CT. MRI ordered - attempting to get stent records per daughter Neurology following speech to perform modified barium swallow tomorrow (2) Right arm weakness: Code(s): R29.898 - Other symptoms and signs involving the musculoskeletal system Status: Chronic Assessment and Plan: chronic per patient since previous CVA at her current baseline PT/OT eval (3) Acute UTI: Code(s): N39.0 - Urinary tract infection, site not specified Status: Acute Assessment and Plan: UA culture positive for E.coli d/c Rocephin, started on meropenem (4) Abdominal pain: Code(s): R10.9 - Unspecified abdominal pain Status: Acute Assessment and Plan: epigastric, RUQ pain patient reports intermittent no rebound tenderness lipase WNL CTA showed mesenteric panniculitis. Discussed with patient results, inflammatory in nature and self-limiting. Plan Continue home medications as appropriate. Subjective Date/time seen: 07/14/23 16:07 Interval history: Patient reports she is feeling a bit better today. Awaiting to hear back from her daughter about getting records documenting her stents for MRI. Discussed with neuro, if unable to obtain records, patient will not be able to receive MRI. Likely not a second stroke, management to remain the same. Her UA positive for E. coli. Started on meropenem, d/c Rocephin. Speech to do a modified barium swallow study tomorrow. Will plan for d/c tomorrow pending testing and response to AB as long as she remains stable. Review of Systems Review of Systems: All systems reviewed & are unremarkable except as noted in HPI and below Exam Narrative: GENERAL: Chronically ill-appearing, fairly-nourished, and in no acute distress. HEAD: Normocephalic, atraumatic. EYES: PERRL and EOMI. ENT: Mucous membranes moist. LUNGS: Clear to auscultation. No respiratory distress. HEART: RRR. Normal peripheral pulses. ABDOMEN: Soft, non-tender to palpation today. nondistended. BS hyperactive. EXTREMITIES: chronic weakness bilateral lower extremities. She can move them but not lift them off the bed. Right upper extremity she can lift off the bed and hold up about 6 inches off the bed. Left arm strength normal. SKIN: Warm, dry, no rash. NEURO: A&O x3. No dysarthria or expressive aphasia. Chronic weakness right-side extremities. Mild right-sided facial droop reported as chronic by patient. PSYCH: Appropriate, cooperative and pleasant. No SI. Objective Data Vital Signs Vital Signs: Vital Signs - 24 hr 07/13/23 20:16 07/13/23 20:00 07/13/23 20:00 Temperature 98.6 F Pulse Rate 80 62 80 Respiratory Rate 15 15 Blood Pressure 107/53 L Pulse Oximetry 99 99 Oxygen Delivery Room Air 07/14/23 00:00 07/14/23 03:57 07/14/23 04:00 Temperature 97.4 F L Pulse Rate 74 73 70 Respiratory Rate 18 Blood Pressure 143/56 H Pulse Oximetry 100 Oxygen Delivery 07/14/23 08:
--- NOTE | 2023-07-14 17:05 | PC.NURSE ---
patient had dose of meropenem due at 1200. Not in pyxis. Called pharmacy and notified them. no dose was showing up on pyxis or in patient tub. charge nurse was notified and verified there was no med available. pharmacy was called back and updated by charge nurse. medication was retimed and given. Patient is resting in bed. no distress noted. care continued
[2023-07-14] MEDS: MEROPENEM 1 GM/NS 100 ML 1 GM/100 ML BAG IVPB (17:13)
[2023-07-14] MEDS: MIRTAZAPINE 15 MG TABLET PO (20:57)
[2023-07-15] VITALS: PULSE 81
[2023-07-15 04:00] VITALS: PULSE 80
[2023-07-15 05:10] VITALS: BP 117/53; PULSE 78; RESP 18; TEMP 36.6; O2SAT 98
[2023-07-15] MEDS: MEROPENEM 1 GM/NS 100 ML 1 GM/100 ML BAG IVPB (05:13)
[2023-07-15 06:16] LABS: Basophils Percent Auto 0.3 % (0.2-1.2); Eosinophils Percent Auto 1.2 % (0-4.4); Hematocrit 33.5 % (37.0-47.0); Hemoglobin 9.9 g/dL (12.0-15.0); Immature Granulocyte Absolute 0.01 K/mm3 (0.00-0.031); Immature Granulocyte Percent A 0.3 % (0-0.5); Lymphocytes Absolute Auto 0.65 K/mm3 (0.9-3.2); Lymphocytes Percent Auto 20.1 % (18.3-44.2); Mean Corpuscular HGB Conc 29.6 g/dl (32-36); Mean Corpuscular Hemoglobin 27.1 pg (26-34); Mean Corpuscular Volume 91.8 fl (80-100); Mean Platelet Volume 11.7 fl (7.4-10.4); Monocytes Absolute Auto 0.3 K/mm3 (0.1-0.6); Monocytes Percent Auto 9.3 % (2.6-8.5); Neutrophils Absolute Auto 2.2 K/mm3 (1.3-6.7); Neutrophils Percent Auto 68.8 % (45.5-73.1); Platelet Count Result 131 k/mm3 (150-375); Red Blood Count 3.65 M/mm3 (4.2-5.4); Red Cell Distribution Width 17.6 % (11.5-14.5); White Blood Count 3.2 K/mm3 (4.5-10.0)
[2023-07-15 06:31] LABS: Anion Gap 5 mmol/L (8-16); Blood Urea Nitrogen 11 mg/dL (7-17); Calcium 7.8 mg/dL (8.4-10.2); Carbon Dioxide 29 mmol/L (22-30); Chloride 103 mmol/L (98-107); Estimated CRCL calculation 45 ml/min; Estimated Glomerular Filt Rate > 60; Glucose 88 mg/dL (65-110); Potassium 3.4 mmol/L (3.4-5.0); Sodium 137 mmol/L (137-145)
[2023-07-15 08:00] VITALS: PULSE 69; O2SAT 98
[2023-07-15] MEDS: FUROSEMIDE 40 MG TABLET PO (08:43)
[2023-07-15] MEDS: APIXABAN 2.5 MG TABLET PO (08:43)
[2023-07-15] MEDS: levETIRAcetam 250 MG TABLET 750 MG PO (08:44)
[2023-07-15 09:09] LABS: Platelet Estimate Adequate (Adequate)
[2023-07-15 09:10] LABS: Anisocytosis 1+ (NORMAL); Poikilocytosis 1+ (NORMAL); Schistocytes Rare (NORMAL)
--- NOTE | 2023-07-15 10:36 | PC.NURSE ---
Vero Stanley notified of patient having blood in urine.
[2023-07-15 12:00] VITALS: PULSE 69
--- NOTE | 2023-07-15 12:12 | PCSTNOTE ---
Please refer to the Bedside Swallow Evaluation in the EMR. Please note, silent aspiration cannot be ruled out at bedside.
--- NOTE | 2023-07-15 12:43 | PM.DS ---
DS: Admitting Diagnosis Discharge Date 07/15/23 Admitting Diagnosis suspected CVA DS: Discharge Diagnosis Discharge Diagnosis (1) CVA (cerebral vascular accident): Code(s): I63.9 - Cerebral infarction, unspecified Status: Chronic Assessment and Plan: history of CVA [address] Head/neck showed Minimal atherosclerotic plaque with 0% stenosis of the both the right and left carotid bulbs relative to normal distal artery lumen diameter (NASCET criteria). Old infarct involving the left posterior cerebral artery vascular distribution as well as a couple small lacunar infarcts at the left thalamus and left caudate nucleus. No acute intracranial process. Age-related changes with new mild diffuse volume loss and mild scattered white matter hypoattenuation consistent with chronic small vessel ischemic disease. Unremarkable cerebral CT angiogram with no aneurysm or hemodynamically significant stenosis. Small bilateral pleural effusions. A few right upper lobe pulmonary nodules measuring up to 7 mm. Recommend 6-12 month follow-up low-dose noncontrast chest CT. MRI ordered - attempting to get stent records per daughter was unsuccessful. Will not be able to get the MRI as ordered while she is here. Neurology consulted speech did a modified barium swallow - recommend minced and moist, level 5 or 6 diet. (2) Right arm weakness: Code(s): R29.898 - Other symptoms and signs involving the musculoskeletal system Status: Chronic Assessment and Plan: chronic per patient since previous CVA PT/OT eval - at baseline (3) Acute UTI: Code(s): N39.0 - Urinary tract infection, site not specified Status: Acute Assessment and Plan: UA culture positive for E.coli d/c Rocephin, started on meropenem will switch to PO Augmentin for d/c to complete 7 days discussed kidney stone finding with hematuria with urology, will follow up outpatient. (4) Abdominal pain: Code(s): R10.9 - Unspecified abdominal pain Status: Acute Assessment and Plan: epigastric, RUQ pain patient reports intermittent no rebound tenderness lipase WNL CTA showed mesenteric panniculitis. Discussed with patient results, inflammatory in nature and self-limiting. Plan Continue home medications as appropriate. DS: Summary Hospital Course Hospital Course: Patient is an 83 YO female with PMH of CVA 2 years ago admitted for new onset stroke symptoms. Patient is on Eliquis received a dose this morning. Patient herself never felt any new symptoms, but an employee where she lives walked past her and noted a right sided facial droop. Patient denies LOC, CUELLAR or vision changes. She has a slight droop to her right side at baseline. Her right side has never regained it's strength since her previous CVA and her vision is at it's baseline. She reports she has been having nausea and diarrhea for the last day and when she is ill her previous stroke symptoms tend to be worsened. She is not aware of any new or modifications to her medications. Her only symptom this morning to report is ringing in her ears. Neuro has been consulted for further evaluation, awaiting MRI. CT head showed no acute changes. CXR showed minimal pleural effusions. Speech evaluation as she reports having difficulty swallowing and requires a modified diet. Modified barium swallow indicated a minced and moist or level 6 diet would be appropriate and continued speech therapy at her residential. CTA showed a renal stone. Due to hematuria, I have discussed these findings with urology, who will follow up with her outpatient. UA showed E.Coli, will d/c with Augmentin to finish 7 day course. Unable to obtain records needed to get MRI done while inpatient, however patient is at her baseline. Likely not a secondary stroke, and she is already on Eliquis and statin which we will continue at d/c. This does not change plan of care, patient stable for return to [place] today. Sta
[2023-07-15] MEDS: ATORVASTATIN 40 MG TABLET 80 MG PO (13:27)
[2023-07-15] MEDS: FAMOTIDINE 10 MG TABLET PO (13:27)
[2023-07-15] MEDS: ESCITALOPRAM OXALATE 10 MG TABLET 20 MG PO (13:27)
[2023-07-15] MEDS: POTASSIUM CHLORIDE 20 MEQ ER TABLET PO (13:29)
[2023-07-15] MEDS: LIDOCAINE HCL 1% LOCAL INJ 2 ML AMPUL 5 ML INFILTRATE (14:45)
[2023-07-15 14:52] LABS: SARS-CoV-2 RNA PCR Negative (Negative)
[2023-07-15] MEDS: ONDANSETRON HCL ODT 4 MG TABLET PO (15:40)
[2023-07-15] MEDS: SALINE LOCK FLUSH 10 ML IV PUSH (15:42)
[2023-07-15] MEDS: ERTAPENEM 1 GM/NS 50 ML 1 GM/50 ML BAG IVPB (15:42)
[2023-07-15 15:50] VITALS: BP 136/70; PULSE 74; RESP 20; TEMP 36.9; O2SAT 95
[2023-07-19 11:05] LABS: Estimated CRCL calculation 45 ml/min; Estimated Glomerular Filt Rate > 60
== END 2023-07-15 16:26 | DRG 57 ==
LOC: ANHED 18:11 → ANH2MED 19:30
PROVIDERS: Admitting Provider Hospitalist; Emergency Provider Emergency Medicine; PCP Hospitalist; Visit Provider Nurse Practitioner
DX: I69.331 Monoplegia of upper limb following cerebral infarction affecting right dominant side (principal); J90 Pleural effusion, not elsewhere classified; K65.4 Sclerosing mesenteritis; N39.0 Urinary tract infection, site not specified; I69.392 Facial weakness following cerebral infarction; R13.10 Dysphagia, unspecified; B96.20 Unspecified Escherichia coli [E. coli] as the cause of diseases classified elsewhere; H93.13 Tinnitus, bilateral; R31.9 Hematuria, unspecified; Z20.822 Contact with and (suspected) exposure to COVID-19; K21.9 Gastro-esophageal reflux disease without esophagitis; E78.5 Hyperlipidemia, unspecified; R91.8 Other nonspecific abnormal finding of lung field; Z99.3 Dependence on wheelchair; Z66 Do not resuscitate
CPT/HCPCS: 36415; 36569; 70496; 70498; 71045; 74174; 80048; 80053; 81001; 82565; 82948; 83690; 84484; 85025; 85610; 85730; 87077; 87086; 87186; 87635; 87637; 92523; 92610; 92611; 93005; 96365; 99285; A9270; G0378; J0696; J1335; J2185; Q9967

== ENCOUNTER 2023-10-07 11:39 | Emergency (ER) | payer BC, SELFPAY ==
--- NOTE | ~2023-10-07 | CT_ITS ---
EXAMINATION: CT brain wo con DATE: 10/07/2023 12:48 INDICATION: Altered level of consciousness. TECHNIQUE: Computed tomography (CT) of the head was performed without intravenous contrast. The mA wa s adjusted according to patient size. Iterative reconstruction technique was employed. The dose-lengt h product was 681.00 mGy-cm. COMPARISON: Head CT 07/12/2023 FINDINGS: There is an old infarct in left temporal occipital region in expected distribution of left posterior cerebral artery. There are old infarcts involving the left basal ganglia and left thalamus. There are scattered areas of low attenuation in the cerebral white matter, which is within normal li mits for the patient's age. There is no intracranial hemorrhage, acute infarction, or abnormal intra cranial mass lesion. There is ex vacuo dilatation of left lateral ventricle. There are likely changes of ocular lens replacement surgeries. The paranasal sinuses are clear. There are bilateral mastoid e ffusions. IMPRESSION: 1. Old infarcts involving the left temporal occipital region, left thalamus, and left basal ganglia. Reviewed, dictated and finalized at location A. IMPRESSION: 1. Old infarcts involving the left temporal occipital region, left thalamus, an d left basal ganglia.
[2023-10-07 11:39] VITALS: BP 104/66; PULSE 106; RESP 12; TEMP 36.1; O2SAT 100
--- NOTE | 2023-10-07 11:46 | ECG_ITS ---
Measurements Intervals [place] Rate: 103 P: [place]: 0 QRS: 31 QRSD: 87 T: 261 QT: 330 QTc: 433 Interpretive Statements ATRIAL FIBRILLATION WITH RAPID VENTRICULAR RESPONSE LOW QRS VOLTAGE [QRS DEFLECTION < 0.5/1.0 mV IN LIMB/CHEST LEADS] ANTEROSEPTAL MYOCARDIAL INFARCTION , OF INDETERMINATE AGE [40+ ms Q WAVE IN V1-V4] NONSPECIFIC T-WAVE ABNORMALITY ABNORMAL ECG COMPARED TO ECG 07/12/2023 11:07:17 NO SIGNIFICANT CHANGES Electronically Signed On 10-07-2023 13:15:34 CDT by Isiah Betancourt M.D.
[2023-10-07 12:00] VITALS: BP 100/72; PULSE 102; RESP 20; O2SAT 100
[2023-10-07] MEDS: SODIUM CHLORIDE 0.9% IV 1,000 ML 150 ML IV CONT (12:03)
[2023-10-07 12:09] LABS: Alveolar/Arterial O2 Gradient 19.7 mmHg; Base Excess ABG -0.3 mEq/l (+/-2.0); Device ROOM AIR; Fractional Inspired Oxygen 21 %; Modified Allen's Test Pass; Oxygen Content ABG 16.1 %vol (16.0-22.0); Oxygen Saturation ABG 96.6 % (95.0-100.0); Oxyhemoglobin 94.7 % THb (90.0-100.0); PCO2 ABG 37.8 mmHg (35.0-45.0); PO2 ABG 84.8 mmHg (80.0-100.0); PO2 FiO2 Ratio Arterial Blood 4.04 %; Site Drawn RIGHT RADIAL
--- NOTE | 2023-10-07 12:18 | PC.NURSE ---
Unable to obtain all lab tests with one venipuncture. Pt refuses to be stuck again. Lactic not obtained.
[2023-10-07 12:22] LABS: Basophils Percent Auto 0.7 % (0.2-1.2); Eosinophils Percent Auto 0.7 % (0-4.4); Hematocrit 37.8 % (37.0-47.0); Hemoglobin 11.6 g/dL (12.0-15.0); Immature Granulocyte Absolute 0.03 K/mm3 (0.00-0.031); Immature Granulocyte Percent A 0.5 % (0-0.5); Lymphocytes Absolute Auto 1.15 K/mm3 (0.9-3.2); Lymphocytes Percent Auto 20.3 % (18.3-44.2); Mean Corpuscular HGB Conc 30.7 g/dl (32-36); Mean Corpuscular Hemoglobin 26.6 pg (26-34); Mean Corpuscular Volume 86.7 fl (80-100); Mean Platelet Volume 10.5 fl (7.4-10.4); Monocytes Absolute Auto 0.4 K/mm3 (0.1-0.6); Monocytes Percent Auto 7.1 % (2.6-8.5); Neutrophils Percent Auto 70.7 % (45.5-73.1); Platelet Count Result 285 k/mm3 (150-375); Red Blood Count 4.36 M/mm3 (4.2-5.4); White Blood Count 5.7 K/mm3 (4.5-10.0)
[2023-10-07 12:30] VITALS: BP 117/76; PULSE 102; RESP 12; O2SAT 98
[2023-10-07 12:31] LABS: Alanine Aminotransferase 81 U/L (6-35); Albumin Level 3.4 g/dL (3.5-5.1); Alkaline Phosphatase 151 U/L (38-126); Anion Gap 13 mmol/L (4-12); Aspartate Amino Transferase 175 U/L (14-36); Bilirubin,Total 0.7 mg/dL (0.2-1.3); Blood Urea Nitrogen 26 mg/dL (7-17); Calcium 8.8 mg/dL (8.4-10.2); Carbon Dioxide 27 mmol/L (22-30); Chloride 96 mmol/L (98-107); Estimated CRCL calculation 28 ml/min; Estimated Glomerular Filt Rate 39; Glucose 69 mg/dL (65-110); Potassium 3.4 mmol/L (3.4-5.0); Sodium 136 mmol/L (137-145)
[2023-10-07 12:38] LABS: INR 1.5; Prothrombin Time 18.6 Seconds (11.1-14.7)
[2023-10-07 12:39] LABS: Partial Thromboplastin Time 33.5 Seconds (22.3-36.8)
[2023-10-07 13:57] VITALS: PULSE 100
[2023-10-07] MEDS: SODIUM CHLORIDE 0.9% IV 1,000 ML 999 ML IV CONT (14:27)
[2023-10-07 15:06] LABS: Appearance Urine Turbid (Clear); Bacteria Urine 4+ /hpf; Bilirubin Urine Negative (Negative); Blood Urine 3+ (Negative); Color Urine Yellow (Yellow); Glucose Urine UA Negative (Negative); Ketones Urine Negative (Negative); Leukocyte Esterase Ur 3+ LEU/UL (Negative); Need Manual Microscopic Reviewed; Nitrate Urine Negative (Negative); Non Pathogenic Casts >20; Protein Urine 3+ mg/dL (Negative); RBC Urine >100 /hpf (0-2); Specific Grav Ur 1.016 (1.001-1.035); Squamous Epithelial Cell Urine None Seen /hpf (Few); Urobilinogen Urine 0.2 mg/dL (<2.0); WBC Urine >100 /hpf (0-3)
[2023-10-07 15:08] LABS: Add Urine Microscopic? YES
--- NOTE | 2023-10-07 15:22 | ED.AMS ---
HPI - Altered Mental Status General Chief Complaint: Altered Mental Status Stated Complaint: AMS Time Seen by Provider: 10/07/23 11:53 Source: EMS Mode of arrival: EMS Limitations: altered mental status History of Present Illness HPI narrative: 83-year-old with a history of seizure disorder, hyperlipidemia, kidney infections stones were sent from a snf with altered mental status as per the EMS patient was unresponsive however arrival she was having shallow breathing and not responding well on her way to the ER pain patient stated that she wants to go home. Her [facility] and she has been progressively declining. She does not want to eat or drink. Family is considering Hospice complaint: altered mental status Related Data Home Medications Medication Instructions Recorded Confirmed apixaban 2.5 mg tablet (Eliquis) 2.5 mg PO BID 05/12/23 07/12/23 atorvastatin 80 mg tablet 80 mg PO DAILY 05/12/23 07/12/23 ergocalciferol (vitamin D2) 1,250 1,250 mcg PO WEEKLY 05/12/23 07/12/23 mcg (50,000 unit) capsule (Vitamin D2) escitalopram oxalate 20 mg tablet 20 mg PO DAILY 05/12/23 07/12/23 famotidine 10 mg tablet 10 mg PO DAILY 05/12/23 07/12/23 furosemide 40 mg tablet 40 mg PO DAILY 05/12/23 07/12/23 levetiracetam 750 mg tablet 750 mg PO BID 05/12/23 07/12/23 mirtazapine 15 mg tablet 15 mg PO HS 05/12/23 07/12/23 ondansetron 4 mg disintegrating 4 mg PO Q8H PRN Nausea 05/12/23 07/12/23 tablet polyethylene glycol 3350 17 17 g PO BID PRN Constipation 05/12/23 07/12/23 gram/dose oral powder (Miralax) potassium chloride 20 mEq 20 meq PO DAILY 05/12/23 07/12/23 tablet,extended release(part/cryst) (Klor-Con M) Allergies Allergy/AdvReac Type Severity Reaction Status Date / Time No Known Allergies Allergy Verified 05/12/23 01:36 SCRATCHER Review of Systems Review of Systems: ROS unobtainable: Yes unobtainable due to mental status PMFSH Past Medical History Medical History CVA (cerebral vascular accident) Depression GERD (gastroesophageal reflux disease) Hyperlipidemia Seizures Family History Family History Father Cerebrovascular accident Hypertension Mother Diabetes mellitus Social History Social History Smoking status: Never smoker Alcohol intake: never Substance use: never Substance use type: does not use Do You Feel Safe in your Home?: No Lack of Transportation: No Lack of Food: Never True Current Housing: I Have Housing Concerned About Future Housing: No Difficulty Paying Gas/Electric Bills: No Difficulty Paying for Meds: No Currently Unemployed: No Education: Grade School Difficulty w/ Childcare or Family Care: No Spiritual care concerns: No Exam Narrative: GENERAL:ill -appearing, cachectic, and in no acute distress. HEAD: Normocephalic, atraumatic. EYES: PERRLA and EOMI. ENT: dry oral mucosa NECK: Supple. CHEST: Clear to auscultation. No respiratory distress. HEART: Regular rate and rhythm. No murmur heard. Normal peripheral pulses. ABDOMEN: Soft, nontender, nondistended, normal active bowel sounds. EXTREMITIES: Normal range of motion. No edema. SKIN: Warm, dry, no rash. NEURO: No focal deficits. Alert . PSYCH: Normal mood and affect. Course Course Emergency Course: I had a long discussion with the son who is the POA informed him about the lab work, CT findings. Patient's son wants her to go back to shelter ,will place her inHospice care at the shelter. Vital Signs Vital signs: Vital Signs Temperature 36.1 C L 10/07/23 11:39 Pulse Rate 106 H 10/07/23 11:39 Respiratory Rate 12 10/07/23 11:39 Blood Pressure 104/66 10/07/23 11:39 Pulse Oximetry 100 10/07/23 11:39 Oxygen Delivery Room Air 10/07/23 11:39 Temperature 36.1 C L 10/07/23 11:39 Pulse
[2023-10-07] MEDS: ONDANSETRON INJ 4 MG/2 ML VIAL IV PUSH (15:54)
--- NOTE | 2023-10-07 15:54 | PC.NURSE ---
Zofran 4 mg IVP given.
== END 2023-10-07 17:52 ==
PROVIDERS: Emergency Provider Family Medicine; PCP Hospitalist
DX: R41.82 Altered mental status, unspecified (principal); G40.909 Epilepsy, unspecified, not intractable, without status epilepticus; E78.5 Hyperlipidemia, unspecified; K21.9 Gastro-esophageal reflux disease without esophagitis; Z87.442 Personal history of urinary calculi; Z86.73 Personal history of transient ischemic attack (TIA), and cerebral infarction without residual deficits; Z79.01 Long term (current) use of anticoagulants; I48.91 Unspecified atrial fibrillation; R94.31 Abnormal electrocardiogram [ECG] [EKG]
CPT/HCPCS: 36415; 36600; 70450; 80053; 81001; 82805; 85025; 85610; 85730; 87077; 87086; 87088; 87186; 93005; 96361; 96374; 99284; J2405; J7030